=== PATIENT | female | born 1930 | race Caucasian/White ===

== ENCOUNTER 2016-10-19 10:08 | Day surgery (SDC) | payer MEDICARE ==
[2016-10-17 14:19] VITALS: BMI 30.9
[2016-10-19 11:25] VITALS: RESP 18; TEMP 97.6
[2016-10-19] MEDS ORDERED: LIDOCAINE 1% 20 ML VIAL (10MG/ML) FOR IV START INTRADERMA ONE (11:25)
[2016-10-19] MEDS ORDERED: LACTATED RINGERS 1,000 ML IV ONE (11:25)
[2016-10-19] MEDS ORDERED: PROPOFOL 10 MG/ML 20 ML VIAL IV ONE (11:59)
[2016-10-19 12:02] LABS: Glucose,Whole Blood 100 mg/dL (75-99)
--- NOTE | 2016-10-19 12:21 | P.PCN ---
Date of Procedure: 10/19/16 Preoperative Diagnosis: Postoperative Diagnosis: Procedure(s) Performed: Patient is a 85 year-old white female, schedule for flexible sigmoidoscopy as part of evaluation of large rectal polyp that was noted on a recent colonoscopy 3 months ago. 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 She is hence scheduled for a repeat flexible sigmoidoscopy to ensure complete polypectomy. Preoperative diagnosis: Follow-up large rectal polyp with high-grade dysplasia noted on a colonoscopy 3 months ago Procedure Flexible sigmoidoscopy with snare polypectomy and argon plasma coagulation Anesthesia MAC Description of procedure: The patient was brought into the endoscopy unit IV conscious sedation was administered by anesthesia and continuous monitoring. Initial digital rectal examination was normal. The Olympus CF 160 video colonoscope was then inserted into the rectum and gradually advanced to the splenic flexure. Careful examination was performed as the scope was gradually being withdrawn. There were scattered sigmoid diverticulosis seen. The mucosa in the descending colon sigmoid colons and proximal rectum appeared normal. In the distal rectum Proximal to the dentate line there was a 2 cm residual broad-based polyp identified which was removed by snare polypectomy. Part of the polyp at the base could not be removed and this was coagulated using argon plasma. Patient tolerated the procedure well. Impression: 2 cm residual polyp in the distal rectum status post snare polypectomy and argon plasma coagulation as described above Sigmoid diverticulosis Recommendations: Patient was advised to follow with the biopsy results. She'll be seen in office in 2-3 weeks. Based on the biopsy results will plan on a repeat flexible sigmoidoscope in 3 months. Implants: Indications for Procedure: Operative Findings: Description of Procedure:
[2016-10-19 12:48] VITALS: BP 149/72; PULSE 62
== END 2016-10-19 13:37 | disposition home or self-care (01) ==
LOC: ORWHC2ENDO 10:08
PROVIDERS: ATTEND Internal Medicine Gastroenterology
DX: Z09 Encounter for follow-up examination after completed treatment for conditions other than malignant neoplasm (principal); D12.8 Benign neoplasm of rectum; K57.30 Diverticulosis of large intestine without perforation or abscess without bleeding; Z86.010 Personal history of colon polyps; Z79.899 Other long term (current) drug therapy; I10 Essential (primary) hypertension; H40.9 Unspecified glaucoma
CPT/HCPCS: 88305; 45338; J2704; 45346

== ENCOUNTER 2016-11-24 13:03 | Observation (INO) | payer MEDICARE ==
[2016-11-24] MEDS ORDERED: SODIUM CHLORIDE 0.9% 500 ML IV STA (13:23)
--- NOTE | 2016-11-24 13:26 | ED ---
GI Bleed HPI - General Source: patient, RN notes reviewed Mode of arrival: ambulatory Limitations: no limitations <Bryn Rodriguez - Last Filed: 11/24/16 15:17> <Edgar Diaz - Last Filed: 11/24/16 16:45> - General Chief complaint: GI Bleed Stated complaint: Post Op Bleeding Time Seen by Provider: 11/24/16 13:13 - History of Present Illness Initial comments: This is an 85-year-old female with daughter presents emergency Department chief complaint rectal bleeding. Patient states that she started having rectal bleeding on and has continued. She states that anytime she sits on the toilet she has bright red blood. Patient's daughter states that it was at least a quarter cup of blood. Patient has never had any history of rectal bleeding. Patient is not taking any aspirin or blood thinners at this time. She states she has no rectal pain no abdominal discomfort this time denies any chest pain, shortness breath, dizziness. Patient states she is concerned that she had called removed in September by Dr. De La Cruz. Patient did call her GI doctor who told her that it's most likely just irritation or colitis and that if the symptoms worsen that she needs to go to the emergency department. Patient states she did have multiple bowel movements when it started but states they were not hard and she was there is no evidence constipation. (Bryn Rodriguez) - Related Data Home Medications Medication Instructions Recorded Confirmed Brimonidine Tartrate/Timolol 1 drop RIGHT EYE BID 10/17/16 11/24/16 [Combigan 0.2%-0.5% Eye Drops] Ergocalciferol (Vitamin D2) 50,000 unit PO LEWIS 10/17/16 11/24/16 [Vitamin D2] Iron Ps Cmplx/Vit B12/FA 1 cap PO HS 10/17/16 11/24/16 [Myferon-150 Forte Capsule] Losartan [Cozaar] 50 mg PO BID 10/17/16 11/24/16 Propylene Glycol/Peg 400/Pf 1 dropper BOTH EYES DAILY PRN 10/17/16 11/24/16 [Systane 0.3-0.4% Eye Drops] Vits A,C,E/Lutein/Minerals 1 tab PO DAILY 10/17/16 11/24/16 [Ocuvite with Lutein Tablet] amLODIPine [Norvasc] 2.5 mg PO TID 10/17/16 11/24/16 prednisoLONE ACETATE 1% OPHTH 1 drops LEFT EYE QAM 10/17/16 11/24/16 [Pred Forte 1%] Allergies Allergy/AdvReac Type Severity Reaction Status Date / Time Penicillins Allergy Anaphylaxis Verified 11/24/16 14:27 Sulfa (Sulfonamide Allergy Rash/Hives Verified 11/24/16 14:27 Antibiotics) Review of Systems ROS Other: All systems not noted in ROS Statement are negative. <Bryn Rodriguez - Last Filed: 11/24/16 15:17> ROS Other: All systems not noted in ROS Statement are negative. <Edgar Diaz - Last Filed: 11/24/16 16:45> ROS Statement: Those systems with pertinent positive or pertinent negative responses have been documented in the HPI. Past Medical History Past Medical History: Eye Disorder, Hypertension Additional Past Medical History / Comment(s): GLAUCOMA BILAT EYES. RETINAL SWELLING History of Any Multi-Drug Resistant Organisms: None Reported Past Surgical History: Cholecystectomy, Joint Replacement Additional Past Surgical History / Comment(s): COLONOSCOPY. STENT TO RT EYE. TUBE TO LT EYE 2013. INJECTION LT EYE 10/16/16 FOR RETINAL SWELLING-GETS INJECTIONS APPROX. EVERY 5 WEEKS. RT TKA. polyp removal 11/18/16 Past Anesthesia/Blood Transfusion Reactions: Postoperative Nausea & Vomiting ( PONV) Past Psychological History: No Psychological Hx Reported Smoking Status: Former smoker Past Alcohol Use History: None Reported Past Drug Use History: None Reported, Unable to Obtain - Past Family History Mother Family Medical History: No Reported History <Bryn Rodriguez - Last Filed: 11/24/16 15:17> General Exam Limitations: no limitations General appearance: alert, in no apparent distress Respiratory exam: Present: normal lung sounds bilaterally. Absent: respiratory distress, wheezes, rales, rhonchi, stridor Cardiovascular Exam: Present: regular rate, normal rhythm, normal heart sounds. Absent: systolic murmur, diastolic murmur, rubs, gallop, clicks GI/Abdominal exam: Present: soft, normal bowel sounds. Absent: distended, tenderness, guarding, rebound, rigid Rectal exam: Present: normal inspection, normal rectal tone, heme (+) stool, bloody stool, other (Exam performed with Rowena RN). Absent: hemorrhoids, mass, tenderness Neurological exam: Present: alert, oriented X3, CN II-XII intact Skin exam: Present: warm, dry, intact, normal color. Absent: rash <Bryn Rodriguez - Last Filed: 11/24/16 15:17> Medical Decision Making - Lab Data Result diagrams: 11/24/16 13:36 11/24/16 13:36 <Bryn Rodriguez - Last Filed: 11/24/16 15:17> - Lab Data Result diagrams: 11/24/16 13:36 11/24/16 13:36 <Edgar Diaz - Last Filed: 11/24/16 16:45> - Medical Decision Making 85-year-old female presented for rectal bleeding. Patient's hemoglobin is stable at this time. There is also evidence of colitis on CT. Patient be kept in the hospital for repeat H&H in evaluation by her GI doctor dr de la cruz (Bryn Rodriguez) 85-year-old female presenting with hematochezia. Patient's vital signs and hemoglobin are stable. There is history of large amount of rectal bleeding. Case was discussed with gastroenterology, they are aware of the patient. Patient will be admitted for further evaluation and treatment. (Edgar Diaz) - Lab Data Lab Results 11/24/16 11/24/16 11/24/16 Range/Units 13:36 13:36 13:36 WBC 7.2 (3.8-10.6) k/uL RBC 4.69 (3.80-5.40) m/uL Hgb 14.3 (11.4-16.0) gm/dL Hct 43.0 (34.0-46.0) % MCV 91.7 (80.0-100.0) fL MCH 30.5 (25.0-35.0) pg MCHC 33.3 (31.0-37.0) g/dL RDW 14.0 (11.5-15.5) % Plt Count 223 (150-450) k/uL Neutrophils % 55 % Lymphocytes % 34 % Monocytes % 7 % Eosinophils % 2 % Basophils % 1 % Neutrophils # 3.9 (1.3-7.7) k/uL Lymphocytes # 2.5 (1.0-4.8) k/uL Monocytes # 0.5 (0-1.0) k/uL Eosinophils # 0.1 (0-0.7) k/uL Basophils # 0.0 (0-0.2) k/uL PT (9.0-12.0) sec INR (<1.2) APTT (22.0-30.0) sec Sodium 139 (137-145) mmol/L Potassium 4.1 (3.5-5.1) mmol/L Chloride 105 (98-107) mmol/L Carbon Dioxide 25 (22-30) mmol/L Anion Gap 9 mmol/L BUN 15 (7-17) mg/dL Creatinine 0.69 (0.52-1.04) mg/dL Est GFR (MDRD) Af Amer >60 (>60 ml/min/1.73 sqM) Est GFR (MDRD) Non-Af >60 (>60 ml/min/1.73 sqM) Glucose 96 (74-99) mg/dL Calcium 9.8 (8.4-10.2) mg/dL Magnesium 2.0 (1.6-2.3) mg/dL Total Bilirubin 0.6 (0.2-1.3) mg/dL AST 21 (14-36) U/L ALT 28 (9-52) U/L Alkaline Phosphatase 70 (38-126) U/L Total Protein 7.4 (6.3-8.2) g/dL Albumin 4.3 (3.5-5.0) g/dL Stool Occult Blood Positive H (Negative) Blood Type Blood Type Confirm Blood Type Recheck Antibody Screen Spec Expiration Date 11/24/16 11/24/16 11/24/16 Range/Units 13:36 13:36 14:40 WBC (3.8-10.6) k/uL RBC (3.80-5.40) m/uL Hgb (11.4-16.0) gm/dL Hct (34.0-46.0) % MCV (80.0-100.0) fL MCH (25.0-35.0) pg MCHC (31.0-37.0) g/dL RDW (11.5-15.5) % Plt Count (150-450) k/uL Neutrophils % % Lymphocytes % % Monocytes % % Eosinophils % % Basophils % % Neutrophils # (1.3-7.7) k/uL Lymphocytes # (1.0-4.8) k/uL Monocytes # (0-1.0) k/uL Eosinophils # (0-0.7) k/uL Basophils # (0-0.2) k/uL PT 9.8 (9.0-12.0) sec INR 1.0 (<1.2) APTT 23.0 (22.0-30.0) sec Sodium (137-145) mmol/L Potassium (3.5-5.1) mmol/L Chloride (98-107) mmol/L Carbon Dioxide (22-30) mmol/L Anion Gap mmol/L BUN (7-17) mg/dL Creatinine (0.52-1.04) mg/dL Est GFR (MDRD) Af Amer (>60 ml/min/1.73 sqM) Est GFR (MDRD) Non-Af (>60 ml/min/1.73 sqM) Glucose (74-99) mg/dL Calcium (8.4-10.2) mg/dL Magnesium (1.6-2.3) mg/dL Total Bilirubin (0.2-1.3) mg/dL AST (14-36) U/L ALT (9-52) U/L Alkaline Phosphatase (38-126) U/L Total Protein (6.3-8.2) g/dL Albumin (3.5-5.0) g/dL Stool Occult Blood (Negative) Blood Type A Positive Blood Type Confirm A Positive Blood Type Recheck CABO Indicated Antibody Screen NEGATIVE Spec Expiration Date 11/27/2016 - 2335 Disposition <Bryn Rodriguez M - Last Filed: 11/24/16 15:17> <Edgar Diaz - Last Filed: 11/24/16 16:45> Clinical Impression: GI bleed, Colitis Disposition: ADMITTED IP TO THIS [facility] Condition: Good
[2016-11-24] MEDS ORDERED: RX INFO: IV CONTRAST WAS GIVEN 1 EACH MISC MISCELLANE PRN (13:32)
[2016-11-24 13:47] LABS: Basophils % (A) 1 %; CH 31.9; CHCM 34.9; Eosinophils # (A) 0.1 k/uL (0-0.7); Eosinophils % (A) 2 %; HDW 2.36; HGB 14.3 gm/dL (11.4-16.0); Luc # (Auto) 0.17; Luc % (Auto) 2; Lymphocytes # (A) 2.5 k/uL (1.0-4.8); Lymphocytes % (A) 34 %; MCH 30.5 pg (25.0-35.0); MCHC 33.3 g/dL (31.0-37.0); MCV 91.7 fL (80.0-100.0); Mean Platelet Volume 7.9; Monocytes # (A) 0.5 k/uL (0-1.0); Monocytes % (A) 7 %; Neutrophils # (A) 3.9 k/uL (1.3-7.7); Neutrophils % (A) 55 %; RBC 4.69 m/uL (3.80-5.40); WBC 7.2 k/uL (3.8-10.6)
[2016-11-24 13:56] LABS: ALT 28 U/L (9-52); AST 21 U/L (14-36); Alkaline Phosphatase 70 U/L (38-126); Anion Gap 9 mmol/L; Blood Urea Nitrogen 15 mg/dL (7-17); Calcium 9.8 mg/dL (8.4-10.2); Carbon Dioxide 25 mmol/L (22-30); Chloride 105 mmol/L (98-107); Glucose 96 mg/dL (74-99); Non-African American GFR(MDRD) >60 (>60 ml/min/1.73 sqM); Potassium 4.1 mmol/L (3.5-5.1); Prothrombin Time 9.8 sec (9.0-12.0); Sodium 139 mmol/L (137-145); Total Bilirubin 0.6 mg/dL (0.2-1.3); Total Protein 7.4 g/dL (6.3-8.2)
--- NOTE | 2016-11-24 15:03 | CT ---
EXAMINATION TYPE: CT abdomen pelvis w con DATE OF EXAM: 11/24/2016 HISTORY: Rectal bleeding. History of recent colonoscopy with polyp removed 6 [address] DLP: 1669.8mGycm Automated Exposure Control for Dose Reduction was Utilized. CONTRAST: CT scan of the abdomen and pelvis is performed without oral but with IV Contrast, patient injected wi th 100 mL of Omnipaque 300. COMPARISON: None. FINDINGS: LUNG BASES: There is suspected coronary artery stent or prominent calcification in the RCA distributi on. There is lingular scarring or atelectatic change near diaphragm. There is medial left basilar royce ear atelectasis or scarring and posterior right basilar linear scarring or atelectasis. Heart size is mildly enlarged. LIVER/GB: Single calcification right hepatic lobe on axial image 29 is noted. Gallbladder is not visu alized and presumed surgically absent. Mild intrahepatic biliary dilatation is seen measuring up to 1 2 mm without obstructing stone or mass identified. No significant intrahepatic biliary dilatation is noted. PANCREAS: Pancreatic duct is visualized but not suspiciously dilated. SPLEEN: No significant abnormality is seen. ADRENALS: No significant abnormality is seen. KIDNEYS: Some cortical thinning in both kidneys is present. BOWEL: There is no suspicious small or large bowel dilatation. Normal-appearing appendix is seen from cecum. There are diverticula throughout the colon most pronounced involving the sigmoid colon. Evalu ation bowel is suboptimal secondary to lack of enteric contrast. There is mild wall thickening involv ing the distal transverse colon extending through splenic flexure involving majority of the descendin g colon. A colitis at this level cannot be excluded versus product of poor distention. UTERUS/ADNEXA: No gross abnormality seen. LYMPH NODES: No greater than 1cm abdominal or pelvic lymph nodes are appreciated. OSSEOUS STRUCTURES: Osseous structures are demineralized. There is vacuum disc phenomenon with modera te disc space narrowing L4-L5 level. OTHER: There is mild to moderate calcified plaque of the aorta extending into pelvic branch vessels. IMPRESSION: Colonic diverticulosis without CT evidence for acute diverticulitis. Cannot exclude mild colitis, differential would include infectious and inflammatory etiologies.
[2016-11-24] MEDS ORDERED: ACETAMINOPHEN TAB 325 MG TAB PO PRN (15:24)
[2016-11-24] MEDS ORDERED: NALOXONE 0.4 MG/ML 1 ML VIAL IV PRN (15:24)
[2016-11-24] MEDS ORDERED: ARTIFICIAL TEARS-HYPROMELLOSE DROPS 15 ML BTL BOTH EYES PRN (20:06)
[2016-11-24] MEDS: BRIMONIDINE TARTRATE 0.2% DROPS 5 ML BTL RIGHT EYE SCH (21:27)
[2016-11-24] MEDS: TIMOLOL 0.5% OPHTH DROPS 5 ML BTL RIGHT EYE SCH (21:28)
[2016-11-24] MEDS: amLODIPine 2.5 MG TAB PO SCH (21:30)
[2016-11-24] MEDS: IRON PS CMPLX/VIT B12/FA 1 EACH CAP PO SCH (21:30)
[2016-11-24] MEDS: LOSARTAN 50 MG TAB PO SCH (21:39)
[2016-11-25 07:57] LABS: Basophils % (A) 1 %; CH 31.7; CHCM 34.6; Eosinophils # (A) 0.1 k/uL (0-0.7); Eosinophils % (A) 1 %; HCT 36.5 % (34.0-46.0); HDW 2.33; HGB 12.2 gm/dL (11.4-16.0); Luc # (Auto) 0.15; Luc % (Auto) 3; Lymphocytes # (A) 1.8 k/uL (1.0-4.8); Lymphocytes % (A) 36 %; MCH 30.8 pg (25.0-35.0); MCHC 33.4 g/dL (31.0-37.0); MCV 92.1 fL (80.0-100.0); Mean Platelet Volume 7.9; Monocytes # (A) 0.4 k/uL (0-1.0); Monocytes % (A) 7 %; Neutrophils # (A) 2.6 k/uL (1.3-7.7); Neutrophils % (A) 51 %; RBC 3.97 m/uL (3.80-5.40); RDW 13.8 % (11.5-15.5); WBC (Perox) 4.92
[2016-11-25 08:37] LABS: ALT 23 U/L (9-52); AST 18 U/L (14-36); Alkaline Phosphatase 58 U/L (38-126); Anion Gap 7 mmol/L; Blood Urea Nitrogen 13 mg/dL (7-17); Carbon Dioxide 23 mmol/L (22-30); Chloride 109 mmol/L (98-107); Glucose 79 mg/dL (74-99); Non-African American GFR(MDRD) >60 (>60 ml/min/1.73 sqM); Potassium 3.5 mmol/L (3.5-5.1); Sodium 139 mmol/L (137-145); Total Bilirubin 0.8 mg/dL (0.2-1.3); Total Protein 5.9 g/dL (6.3-8.2)
[2016-11-25] MEDS: TIMOLOL 0.5% OPHTH DROPS 5 ML BTL RIGHT EYE SCH ×2 (08:38→20:20)
[2016-11-25] MEDS: BRIMONIDINE TARTRATE 0.2% DROPS 5 ML BTL RIGHT EYE SCH ×2 (08:39→20:20)
[2016-11-25] MEDS: prednisoLONE ACETATE 1% OPHTH DROPS 1 ML BTL LEFT EYE SCH (08:39)
[2016-11-25] MEDS: LOSARTAN 50 MG TAB PO SCH (08:40)
[2016-11-25] MEDS: amLODIPine 2.5 MG TAB PO SCH ×2 (08:40→18:08)
[2016-11-25] MEDS: VIT A,C & E-LUTEIN-MINERALS 1 EACH TAB PO SCH (08:40)
[2016-11-25] MEDS: SODIUM CHLORIDE 0.9% 1,000 ML IV SCH (08:41)
[2016-11-25] MEDS ORDERED: ERGOCALCIFEROL 50,000 UNIT CAP PO SCH (12:00)
[2016-11-25 15:59] VITALS: RESP 16
[2016-11-25] MEDS ORDERED: DIAZEPAM 5 MG TAB PO PRN (16:16)
[2016-11-25] MEDS ORDERED: MAGNESIUM CITRATE 296 ML BOTTLE PO ONE (17:00)
[2016-11-25] MEDS ORDERED: Magnesium Replacement Protocol 1 EACH MISC MISCELLANE PRN (17:30)
[2016-11-25] MEDS ORDERED: Potassium Replacement Protocol 1 EACH MISC MISCELLANE PRN (17:30)
[2016-11-25 17:49] LABS: Basophils % (A) 1 %; CH 31.6; CHCM 34.5; Eosinophils # (A) 0.1 k/uL (0-0.7); Eosinophils % (A) 2 %; HCT 40.3 % (34.0-46.0); HDW 2.38; HGB 13.3 gm/dL (11.4-16.0); Luc # (Auto) 0.13; Luc % (Auto) 3; Lymphocytes # (A) 1.6 k/uL (1.0-4.8); Lymphocytes % (A) 34 %; MCH 30.5 pg (25.0-35.0); MCHC 33.1 g/dL (31.0-37.0); MCV 92.1 fL (80.0-100.0); Mean Platelet Volume 8.2; Monocytes # (A) 0.4 k/uL (0-1.0); Monocytes % (A) 8 %; Neutrophils # (A) 2.5 k/uL (1.3-7.7); Neutrophils % (A) 54 %; RBC 4.37 m/uL (3.80-5.40); RDW 13.6 % (11.5-15.5); WBC 4.7 k/uL (3.8-10.6); WBC (Perox) 4.84
[2016-11-25] MEDS ORDERED: ALPRAZolam 0.25 MG TAB PO PRN (18:06)
--- NOTE | 2016-11-25 18:10 | P.HPIM ---
History of Present Illness H&P Date: 11/25/16 Chief Complaint: Rectal bleed This is a 85-year-old female with past medical history noted below who presented to the hospital with rectal bleed. Patient said that she [] blood with her stool on and this is being getting progressively worse. Yesterday she noted approximately half cupful of blood in the toilet along with her stool. She said that she had a colonoscopy approximately 4 months ago and at that time she was found to have a polyp that was removed. She is agile to follow up with GI in the office last week but her appointment was rescheduled. She said that she does not take blood thinners at home. She never had problems with recurrent GI bleed. She was evaluated in the emergency room and was found to be hemodynamically stable. Hemoglobin on presentation was 14. Today, patient continued to complain of having liquid stool with bright red blood mixed with it. C. diff screen was negative. Her daughter at bedside is a nurse and she confirmed large amount of bright red blood with each bowel movement. Review of Systems Review of system: 14 points review of systems were obtained and were negative except to what were mentioned in the HPI. Past Medical History Past Medical History: Eye Disorder, Hypertension Additional Past Medical History / Comment(s): GLAUCOMA BILAT EYES. RETINAL SWELLING History of Any Multi-Drug Resistant Organisms: None Reported Past Surgical History: Cholecystectomy, Joint Replacement Additional Past Surgical History / Comment(s): COLONOSCOPY. STENT TO RT EYE. TUBE TO LT EYE 2013. INJECTION LT EYE 10/16/16 FOR RETINAL SWELLING-GETS INJECTIONS APPROX. EVERY 5 WEEKS. RT TKA. polyp removal 10/19/16 Past Anesthesia/Blood Transfusion Reactions: Postoperative Nausea & Vomiting ( PONV) Past Psychological History: No Psychological Hx Reported Smoking Status: Former smoker Past Alcohol Use History: None Reported Additional Past Alcohol Use History / Comment(s): QUIT OVER 50 YRS AGO Past Drug Use History: None Reported, Unable to Obtain - Past Family History Mother Family Medical History: No Reported History Medications and Allergies Home Medications Medication Instructions Recorded Confirmed Type Brimonidine Tartrate/Timolol 1 drop RIGHT EYE BID 10/17/16 11/24/16 History [Combigan 0.2%-0.5% Eye Drops] Ergocalciferol (Vitamin D2) 50,000 unit PO LEWIS 10/17/16 11/24/16 History [Vitamin D2] Iron Ps Cmplx/Vit B12/FA 1 cap PO HS 10/17/16 11/24/16 History [Myferon-150 Forte Capsule] Losartan [Cozaar] 50 mg PO BID 10/17/16 11/24/16 History Propylene Glycol/Peg 400/Pf 1 dropper BOTH EYES DAILY PRN 10/17/16 11/24/16 History [Systane 0.3-0.4% Eye Drops] Vits A,C,E/Lutein/Minerals 1 tab PO DAILY 10/17/16 11/24/16 History [Ocuvite with Lutein Tablet] amLODIPine [Norvasc] 2.5 mg PO TID 10/17/16 11/24/16 History prednisoLONE ACETATE 1% OPHTH 1 drops LEFT EYE QAM 10/17/16 11/24/16 History [Pred Forte 1%] Allergies Allergy/AdvReac Type Severity Reaction Status Date / Time Penicillins Allergy Anaphylaxis Verified 11/24/16 14:27 Sulfa (Sulfonamide Allergy Rash/Hives Verified 11/24/16 14:27 Antibiotics) Physical Exam Vitals: Vital Signs Temp Pulse Resp BP Pulse Ox 11/25/16 15:00 97.4 F L 68 16 134/64 98 11/25/16 07:00 97.4 F L 69 17 111/53 95 11/24/16 23:57 77 16 11/24/16 23:00 97.5 F L 77 16 137/75 95 Intake and Output 11/25/16 11/25/16 11/25/16 06:59 14:59 22:59 Intake Total 80 600 Balance 80 600 Intake: Intake, IV Titration 80 Amount Sodium Chloride 0.9% 1, 80 000 ml @ 20 mls/hr IV . Q24H SHAN Rx#:[id number] Oral 600 Other: Voiding Method Toilet Toilet Toilet # Voids 3 General: The patient is awake and alert, in no distress Eye: there is normal conjunctiva bilaterally. Neck: The neck is supple, there is no JVD. Cardiovascular: Normal S1-S2, no S3-S4, no murmurs. Respiratory: Lungs clear to auscultation bilaterally Gastrointestinal: Abdomen is soft, nontender Musculoskeletal: There is no pedal edema. Neurological:. Speech is normal. Skin: Skin is warm and dry Results CBC & Chem 7: 11/25/16 17:17 11/25/16 07:24 Labs: Abnormal Lab Results - Last 24 Hours (Table) 11/25/16 Range/Units 07:24 Chloride 109 H (98-107) mmol/L Total Protein 5.9 L (6.3-8.2) g/dL Albumin 3.3 L (3.5-5.0) g/dL Thrombosis Risk Factor Assmnt - Choose All That Apply Each Factor Represents 1 point: Obesity (BMI >25) Each Risk Factor Represents 3 Points: Age 75 years or older Thrombosis Risk Factor Assessment Total Risk Factor Score: 4 Thrombosis Risk Factor Assessment Level: Moderate Risk Assessment and Plan Plan: 1. Hematochezia may be attributed to underlying diverticular disease. Computed tomography scan of the abdomen showed colonic diverticulosis with no evidence of acute diverticulitis. Patient was seen and evaluated by gastroenterology and plan for colonoscopy in the morning. 2. Essential hypertension: Blood pressure on the lower side. I would decrease some of her home medication doses. Today, I reviewed her medication list and lab work results. Repeat hemoglobin this evening is around 13. There is no significant drop in her hemoglobin. We' ll transfuse as needed for hemoglobin below 8. Patient and her daughter at bedside updated about her current clinical condition. We will continue supportive care. Repeat lab work in the morning.
[2016-11-25] MEDS: IRON PS CMPLX/VIT B12/FA 1 EACH CAP PO SCH (20:19)
[2016-11-26] MEDS: SODIUM CHLORIDE 0.9% 1,000 ML IV SCH (00:01)
[2016-11-26] MEDS: NA PHOS,M-B/NA PHOS,DI-BA 133 ML ENEMA RECTAL SCH ×2 (05:50→06:23)
[2016-11-26] MEDS ORDERED: LIDOCAINE 1% INJ 10MG/ML (20 ML MDV) ONE (07:05)
[2016-11-26] MEDS ORDERED: PROPOFOL 10 MG/ML 20 ML VIAL IV ONE (07:05)
[2016-11-26] MEDS ORDERED: ONDANSETRON 4 MG/2 ML VIAL ONE (07:05)
[2016-11-26] MEDS ORDERED: LACTATED RINGERS 1,000 ML IV ONE (07:07)
--- NOTE | 2016-11-26 07:24 | P.PCN ---
Date of Procedure: 11/26/16 Preoperative Diagnosis: Postoperative Diagnosis: Procedure(s) Performed: BRIEF HISTORY: Patient is a 85-year-old pleasant white female, admitted hospital with acute lower GI bleed. She had multiple episodes of bright blood per rectum for the last 5 days duration. She had a flexible sigmoid colonoscopy done on 10/19/2016 as a part of follow-up of large rectal polyp and it showed a 2 cm residual polyp that was removed by snare polypectomy and argon plasma coagulation was performed. For the last 4 days started having rectal bleeding A to 4 times a day and she is hence scheduled for a flexible sigmoidoscopy to evaluate this. PROCEDURE PERFORMED: Flexible sigmoidoscopy PREOPERATIVE DIAGNOSIS: acute lower GI bleeding IV sedation per Anesthesia. PROCEDURE: After informed consent was obtained, the patient, was brought into the endoscopy unit. IV sedation was administered by Anesthesia under continuous monitoring. Digital rectal examination was normal. Initially the Olympus CF- 160 flexible video colonoscope was then inserted in the rectum, gradually advanced into the splenic flexure and carefully examination was performed as the scope was gradually being withdrawn. The mucosa of the descending colon, sigmoid colon, and rectum appeared normal. Scattered sigmoid diverticulosis seen with no active bleeding. In the rectum distal rectum at the site of previous polypectomy there was a superficial ulceration identified with a small red spot but no active bleeding. Since this appeared to be the source of recent bleed and proceed with cautery with a gold probe and the ulcer was completely cauterized. Retroflexion was performed in the rectum and no lesions were seen. The patient tolerated the procedure well. IMPRESSION: 1. Distal rectal superficial ulceration at the site of previous polypectomy with no active bleeding, but since this appeared to be the source of bleeding cautery was performed using a gold probe. 2. Scattered sigmoid diverticulosis. RECOMMENDATIONS: Findings of this examination were discussed with the patient as well as a family. She'll be started on a regular diet and she can be discharged home today. Implants: Indications for Procedure: Operative Findings: Description of Procedure:
--- NOTE | 2016-11-26 07:32 | CONS ---
DATE OF CONSULTATION: 11/25/2016 REASON FOR CONSULTATION: Rectal bleeding of four days duration. HISTORY OF PRESENT ILLNESS: The patient is a 89 -year-old pleasant white female came to the emergency room with ongoing rectal bleeding for the last four days. On , she had two episodes of bright red blood per rectum and she called me Saturday morning and she was advised to go to the emergency room if she continues to have persistent symptoms. However, on Saturday, she did not have any bleeding but yesterday she had about four episodes of bright red blood per rectum with some clots. She became very concerned yesterday evening, went to the emergency room and subsequently was admitted to the hospital for further evaluation and treatment. The patient recently underwent flexible sigmoidoscopy on October 19 as part of follow-up of a large rectal polyp that was noted on a prior colonoscopy three months earlier. The polyp was located in the distal rectum 4 cm broad based that was removed with snare polypectomy and Argon plasma coagulation was performed. She also has sigmoid diverticulosis. This morning she is doing better. No further bleeding. No abdominal pain. No fevers, chills or night sweats. Never had similar symptoms in the past. Past medical history: glaucoma, hypertension. Medications at home: 1. Timolol eye drops. 2. Vitamin D3. 3. Losartan. 4. Prednisolone eye drops. ALLERGIES: SULFA AND PENICILLIN. SOCIAL HISTORY: No smoking or alcohol use. PAST SURGICAL HISTORY: Colonoscopy in June 2016 that showed a large 4 cm rectal polyp. Repeat sigmoidoscopy in September 2016 showed a 2 cm residual polyp that was ( ). FAMILY HISTORY: Mother and father of old age. REVIEW OF SYSTEMS: CARDIOPULMONARY: No chest pain or shortness of breath. : No hematuria or dysuria. MUSCULOSKELETAL: Unremarkable. SKIN: Unremarkable Endocrine: Unremarkable. Psychiatric: Unremarkable. Neurological: Unremarkable. ENT/Vision: Unremarkable. Constitutional: No recent weight loss. No fevers, chills or night sweats. On physical examination, she appears comfortable, in no apparent distress. Vital signs are stable. Blood pressure is 129/95. Pulse rate 88. Temperature 97.7. HEENT: Unremarkable. Conjunctivae pink. Sclerae anicteric. Oral cavity no lesions. Neck no JVD or lymph node enlargement. Chest is clear to auscultation. Heart is regular rate and rhythm. Abdomen is soft. Bowel sounds positive. No organomegaly. Extremities no pedal edema. Skin no rashes. Neurological: Alert and oriented times three. No focal deficits. Labs done at the time of admission to the hospital last night: WBC 7.2, hemoglobin 15.3, platelets normal. Basic metabolic panel is within normal limits. PT/INR is normal. This morning repeat hemoglobin is 12.2. Stool for C. dif is negative. Stool occult blood was positive. CT of the abdomen done yesterday in the emergency room showed evidence of sigmoid diverticulosis with no diverticulitis. Mild wall thickening involving the left colon. IMPRESSION: This is a lady who presents with ongoing rectal bleeding for the last four days duration with some diarrhea. CT scan of the abdomen showed some mild thickening of the left side of the colon. She had flexible sigmoidoscopy done six weeks ago and was noted to have a 2 cm residual rectal polyp that was removed by snare polypectomy and Argon plasma coagulation was performed. At this time, it is not sure if we are dealing with bleeding from the polypectomy site or though it appears unlikely since the polyp was removed six weeks ago or possibility of an acute infectious colitis versus ischemic colitis, needs to be considered. Doubt diverticular bleed. In any event, hemoglobin remains stable and it is 12.6. RECOMMENDATIONS: 1. Start on a clear liquid diet. 2. Proceed with flexible ( ) tomorrow. 3. The plan was discussed with the patient and she is agreeable to it. Thank you for this consultation. JACQUES
[2016-11-26 07:54] VITALS: BP 163/70; PULSE 64; TEMP 97.5
[2016-11-26 08:04] LABS: Basophils % (A) 1 %; CHCM 34.3; Eosinophils # (A) 0.1 k/uL (0-0.7); Eosinophils % (A) 2 %; HCT 38.4 % (34.0-46.0); HDW 2.42; HGB 13.3 gm/dL (11.4-16.0); Luc % (Auto) 2; Lymphocytes # (A) 1.4 k/uL (1.0-4.8); Lymphocytes % (A) 27 %; MCH 31.4 pg (25.0-35.0); MCHC 34.5 g/dL (31.0-37.0); MCV 90.9 fL (80.0-100.0); Mean Platelet Volume 7.4; Monocytes # (A) 0.4 k/uL (0-1.0); Monocytes % (A) 7 %; Neutrophils # (A) 3.1 k/uL (1.3-7.7); Neutrophils % (A) 62 %; RBC 4.23 m/uL (3.80-5.40); RDW 12.8 % (11.5-15.5); WBC 5.1 k/uL (3.8-10.6); WBC (Perox) 4.87
[2016-11-26 08:25] LABS: Anion Gap 10 mmol/L; Blood Urea Nitrogen 10 mg/dL (7-17); Calcium 9.3 mg/dL (8.4-10.2); Carbon Dioxide 27 mmol/L (22-30); Chloride 107 mmol/L (98-107); Glucose 86 mg/dL (74-99); Magnesium 2.2 mg/dL (1.6-2.3); Non-African American GFR(MDRD) >60 (>60 ml/min/1.73 sqM); Potassium 3.4 mmol/L (3.5-5.1); Sodium 144 mmol/L (137-145)
[2016-11-26] MEDS: prednisoLONE ACETATE 1% OPHTH DROPS 1 ML BTL LEFT EYE SCH (08:26)
[2016-11-26] MEDS: TIMOLOL 0.5% OPHTH DROPS 5 ML BTL RIGHT EYE SCH (08:26)
[2016-11-26] MEDS: BRIMONIDINE TARTRATE 0.2% DROPS 5 ML BTL RIGHT EYE SCH (08:26)
[2016-11-26] MEDS: VIT A,C & E-LUTEIN-MINERALS 1 EACH TAB PO SCH (08:26)
[2016-11-26] MEDS ORDERED: POTASSIUM CHLORIDE ER 20 MEQ TAB.ER PO STA (08:41)
[2016-11-26] MEDS ORDERED: LOSARTAN 50 MG TAB PO SCH (09:00)
[2016-11-26] MEDS ORDERED: amLODIPine 2.5 MG TAB PO SCH (09:00)
--- NOTE | 2016-11-26 10:50 | P.DS ---
Providers Date of admission: 11/24/16 15:25 Expected date of discharge: 11/26/16 Attending physician: Deion Mccord Consults: 11/24/16 15:24 Consult Physician Stat Consulting Provider: Merle De La Cruz Consult Reason/Comments: rectal bleeding Do you want consulting provider notified?: Already Contacted Primary care physician: Sarahy Seo Hospital Course: Discharge diagnosis 1. Rectal bleeding: Status post flexible sigmoidoscopy with Dr. Alarcon revealing a distal rectal ulceration at the site of previous polypectomy. No active bleeding. But this didn't appear to be the source of bleeding cautery was performed at that area. Also evidence of scattered sigmoid diverticulosis. Hemoglobin has remained stable. Dr. Alarcon has cleared patient for discharge 2. Essential hypertension with blood pressures being on the lower side. Medications have been adjusted. Losartan has been decreased to 50 mg daily. We 'll adjust Norvasc dosage to 5 mg daily. Patient's blood pressure are still now stable. Continue to monitor. 3. Hypokalemia potassium 3.4 at discharge. She received supplement. Hospital course This is a 85-year-old female with past medical history noted below who presented to the hospital with rectal bleed. Patient said that she [] blood with her stool on and this is being getting progressively worse. Yesterday she noted approximately half cupful of blood in the toilet along with her stool. She said that she had a colonoscopy approximately 4 months ago and at that time she was found to have a polyp that was removed. She is agile to follow up with GI in the office last week but her appointment was rescheduled. She said that she does not take blood thinners at home. She never had problems with recurrent GI bleed. She was evaluated in the emergency room and was found to be hemodynamically stable. Hemoglobin on presentation was 14. Today, patient continued to complain of having liquid stool with bright red blood mixed with it. C. diff screen was negative. Her daughter at bedside is a nurse and she confirmed large amount of bright red blood with each bowel movement. Patient underwent a flexible sigmoidoscopy with Dr. Alarcon. I did reveal a distal rectal ulceration at the site of previous polypectomy. No evidence of active bleeding. But she did cauterize that area. There is also evidence of diverticulosis. Patient's hemoglobin has remained stable during this admission. She did have one more bloody bowel movements this morning after the procedure. He shouldn't and patient started been educated that she may still have some bleeding but it should continue to show improvement. Hemoglobin has remained stable. Hemoglobin at discharge is 13.3. GI service has cleared her for discharge. We'll have her follow-up with her PCP in 3 days for blood pressure check and CBC and BMP check. Please refer to chart for any further details. Patient Condition at Discharge: Stable Plan - Discharge Summary New Discharge Prescriptions: New amLODIPine BESYLATE [Norvasc] 5 mg PO DAILY #30 tablet Losartan [Cozaar] 50 mg PO DAILY #0 tab Continue prednisoLONE ACETATE 1% OPHTH [Pred Forte 1%] 1 drops LEFT EYE QAM Vits A,C,E/Lutein/Minerals [Ocuvite with Lutein Tablet] 1 tab PO DAILY Propylene Glycol/Peg 400/Pf [Systane 0.3-0.4% Eye Drops] 1 dropper BOTH EYES DAILY PRN PRN Reason: Dry Eye(S) Iron Ps Cmplx/Vit B12/FA [Myferon-150 Forte Capsule] 1 cap PO HS Ergocalciferol (Vitamin D2) [Vitamin D2] 50,000 unit PO LEWIS Brimonidine Tartrate/Timolol [Combigan 0.2%-0.5% Eye Drops] 1 drop RIGHT EYE BID Discontinued amLODIPine [Norvasc] 2.5 mg PO TID Losartan [Cozaar] 50 mg PO BID Discharge Medication List Brimonidine Tartrate/Timolol [Combigan 0.2%-0.5% Eye Drops] 1 drop RIGHT EYE BID 10/17/16 [History] Ergocalciferol (Vitamin D2) [Vitamin D2] 50,000 unit PO LEWIS 10/17/16 [History] Iron Ps Cmplx/Vit B12/FA [Myferon-150 Forte Capsule] 1 cap PO HS 10/17/16 [ History] Propylene Glycol/Peg 400/Pf [Systane 0.3-0.4% Eye Drops] 1 dropper BOTH EYES DAILY PRN 10/17/16 [History] Vits A,C,E/Lutein/Minerals [Ocuvite with Lutein Tablet] 1 tab PO DAILY 10/17/16 [History] prednisoLONE ACETATE 1% OPHTH [Pred Forte 1%] 1 drops LEFT EYE QAM 10/17/16 [ History] Losartan [Cozaar] 50 mg PO DAILY #0 tab 11/26/16 [Rx] amLODIPine BESYLATE [Norvasc] 5 mg PO DAILY #30 tablet 11/26/16 [Rx] Follow up Appointment(s)/Referral(s): Sarahy Seo DO [Primary Care Provider] - 3 Days Activity/Diet/Wound Care/Special Instructions: Diet: cardiac Activity: as tolerated check CBC in 3 days Discharge Disposition: HOME SELF-CARE
== END 2016-11-26 11:38 | disposition home or self-care (01) ==
LOC: EC 13:03 → 5MS5E 15:25 → 5ONC 17:04
PROVIDERS: ADMIT Internal Medicine; ATTEND Internal Medicine
DX: K92.2 Gastrointestinal hemorrhage, unspecified (principal); E87.6 Hypokalemia; I10 Essential (primary) hypertension; K62.6 Ulcer of anus and rectum; K57.30 Diverticulosis of large intestine without perforation or abscess without bleeding; Z79.899 Other long term (current) drug therapy; Z88.0 Allergy status to penicillin; Z88.2 Allergy status to sulfonamides; H40.9 Unspecified glaucoma; Z87.891 Personal history of nicotine dependence; Z79.52 Long term (current) use of systemic steroids
CPT/HCPCS: 96360; 99285; 36415; 86900; 86901; 80053 ×2; 80048; 83735 ×2; 85025 ×3; 85610; 85730; 86850; 82272; 87324; 74177; 45334; G0378 ×3; J2405; J2001; Q9967; J2704; 96361

== ENCOUNTER 2018-07-17 21:10 | Inpatient (IN) | payer MEDICARE ==
[2018-07-17] MEDS ORDERED: SODIUM CHLORIDE 0.9% 500 ML 500 ML IV ONE (21:58)
[2018-07-17] MEDS ORDERED: ONDANSETRON 4 MG/2 ML VIAL IVP STA (22:27)
[2018-07-17 22:32] LABS: Basophils % (A) 0 %; Eosinophils # (A) 0.1 k/uL (0-0.7); Eosinophils % (A) 1 %; HCT 42.6 % (34.0-46.0); HGB 14.3 gm/dL (11.4-16.0); Lymphocytes # (A) 1.2 k/uL (1.0-4.8); Lymphocytes % (A) 13 %; MCH 29.9 pg (25.0-35.0); MCHC 33.5 g/dL (31.0-37.0); MCV 89.2 fL (80.0-100.0); Monocytes # (A) 0.5 k/uL (0-1.0); Monocytes % (A) 5 %; Neutrophils # (A) 7.1 k/uL (1.3-7.7); Neutrophils % (A) 80 %; Platelet Count 217 k/uL (150-450); RBC 4.78 m/uL (3.80-5.40); RDW 12.9 % (11.5-15.5); WBC 8.9 k/uL (3.8-10.6)
[2018-07-17 22:36] LABS: ALT 41 U/L (9-52); AST 35 U/L (14-36); Alkaline Phosphatase 63 U/L (38-126); Anion Gap 9 mmol/L; Blood Urea Nitrogen 16 mg/dL (7-17); Calcium 9.5 mg/dL (8.4-10.2); Carbon Dioxide 23 mmol/L (22-30); Chloride 105 mmol/L (98-107); Glucose 128 mg/dL (74-99); Lipase 703 U/L (23-300); Potassium 3.7 mmol/L (3.5-5.1); Sodium 137 mmol/L (137-145); Total Bilirubin 0.6 mg/dL (0.2-1.3)
[2018-07-18] MEDS ORDERED: ACETAMINOPHEN TAB 325 MG TAB PO PRN (00:45)
[2018-07-18] MEDS ORDERED: MORPHINE SULFATE 4 MG/ML SYRINGE IV PRN (00:45)
[2018-07-18] MEDS ORDERED: IBUPROFEN 400 MG TAB PO PRN (00:45)
[2018-07-18] MEDS ORDERED: NALOXONE 0.4 MG/ML 1 ML VIAL IV PRN (00:45)
[2018-07-18 00:58] LABS: Appearance,Urine Clear (Clear); Bilirubin,Urine Negative (Negative); Blood,Urine Negative (Negative); Color,Urine Light Yellow; Glucose,Urine (UA) Negative (Negative); Ketones,Urine Negative (Negative); Leukocyte Esterase,Urine Large (Negative); Mucus,Urine Rare /hpf; Nitrite,Urine Negative (Negative); Protein,Urine Negative (Negative); RBC,Urine 4 /hpf (0-5); Specific Gravity,Urine 1.027 (1.001-1.035); Squamous Epithelial Cell,Urine 1 /hpf (0-4); Urobilinogen,Urine <2.0 mg/dL (<2.0)
--- NOTE | 2018-07-18 01:16 | ED ---
Nausea/Vomiting/Diarrhea HPI - General Source: patient Mode of arrival: ambulatory Limitations: no limitations <Ellie Batista - Last Filed: 07/18/18 01:17> <Regi Morgan - Last Filed: 07/18/18 02:35> - General Chief complaint: Nausea/Vomiting/Diarrhea Stated complaint: Vomiting Time Seen by Provider: 07/17/18 21:34 - History of Present Illness Initial comments: 87-year-old female past medical history of hypertension presenting today for chief complaint of diarrhea 4 days. Patient states she began experiencing vomiting and diarrhea Saturday, she states 2 days later it resolved however today she began experiencing similar symptoms she states is mostly diarrhea with an episode of vomiting that was mostly bile. Patient states she has not been eating very much she is attempted to eat toast, crackers can barely keep down water. Patient denies any melena hematochezia or hematemesis. Patient denies r ecent hospitalization. Patient states she has not had sniffed abdominal pain however patient presented to her primary care provider today where she was provided Zofran and loperamide. Patient states after the loperamide she began experiencing crampy abdominal pain, she states she still had a loose stool upon arrival to the emergency department. Patient states the crampy abdominal pain as well as persistent diarrhea is what brought her in today for evaluation. Patient denies fever, night sweats or chills. Patient denies any recent constipation, surgery, chest pain dyspnea lower extremity swelling cough or upper respiratory symptoms. VS within acceptable limits. PATIENT APPEARS WELL AND NONTOXIC. AFEBRILE. (Ellie Batista) - Related Data Home Medications Medication Instructions Recorded Confirmed Ergocalciferol (Vitamin D2) 50,000 unit PO LEWIS 10/17/16 07/17/18 [Vitamin D2] Propylene Glycol/Peg 400/Pf 1 dropper BOTH EYES DAILY PRN 10/17/16 07/17/18 [Systane 0.3-0.4% Eye Drops] Acetaminophen [Tylenol 8 Hour] 650 mg PO Q8HR PRN 07/17/18 07/17/18 Diphenox-Atrop 2.5-0.025 mg 1 tab PO DIRECTED 07/17/18 07/17/18 [Lomotil] Estrogens, Conjugated Cream 1 applic VAGINAL HS 07/17/18 07/17/18 [Premarin Cream] Latanoprost/Pf [Latanoprost 0.005% 1 drop BOTH EYES HS 07/17/18 07/17/18 Eye Drop] Metoprolol Succinate [Toprol XL] 12.5 mg PO DAILY 07/17/18 07/17/18 Ondansetron HCl [Zofran] 8 mg PO TID 07/17/18 07/17/18 Timolol Maleate [Timolol Maleate 1 drop BOTH EYES DAILY 07/17/18 07/17/18 0.5% Ophth Gel] Vit C/E/Zn/Coppr/Lutein/Zeaxan 1 cap PO BID 07/17/18 07/17/18 [Preservision Areds 2 Softgel] Vitamin B Complex 1 cap PO DAILY 07/17/18 07/17/18 amLODIPine BESYLATE [Norvasc] 5 mg PO HS 07/17/18 07/17/18 amLODIPine [Norvasc] 2.5 mg PO DAILY 07/17/18 07/17/18 Previous Rx's Medication Instructions Recorded Losartan [Cozaar] 50 mg PO DAILY #0 tab 11/26/16 Allergies Allergy/AdvReac Type Severity Reaction Status Date / Time Penicillins Allergy Anaphylaxis Verified 07/17/18 21:23 Sulfa (Sulfonamide Allergy Rash/Hives Verified 07/17/18 21:23 Antibiotics) Review of Systems ROS Other: All systems not noted in ROS Statement are negative. <Ellie Batista L - Last Filed: 07/18/18 01:17> ROS Other: All systems not noted in ROS Statement are negative. <Regi Morgan P - Last Filed: 07/18/18 02:35> ROS Statement: Those systems with pertinent positive or pertinent negative responses have been documented in the HPI. Past Medical History Past Medical History: Eye Disorder, Hypertension Additional Past Medical History / Comment(s): GLAUCOMA BILAT EYES. RETINAL SWELLING History of Any Multi-Drug Resistant Organisms: None Reported Past Surgical History: Cholecystectomy, Joint Replacement Additional Past Surgical History / Comment(s): COLONOSCOPY. STENT TO RT EYE. TUBE TO LT EYE 2013. INJECTION LT EYE 10/16/16 FOR RETINAL SWELLING-GETS INJECTIONS APPROX. EVERY 5 WEEKS. RT TKA. polyp removal 10/19/16 Past Anesthesia/Blood Transfusion Reactions: Postoperative Nausea & Vomiting (PONV) Past Psychological History: No Psychological Hx Reported Smoking Status: Former smoker Past Alcohol Use History: None Reported Past Drug Use History: None Reported, Unable to Obtain - Past Family History Mother Family Medical History: No Reported History <Ellie Batista - Last Filed: 07/18/18 01:17> General Exam Limitations: no limitations <Ellie Batista - Last Filed: 07/18/18 01:17> - General Exam Comments Initial Comments: General: The patient is awake and alert, in no distress. Eye: +3 mm pupils are equal, round and reactive to light, extra-ocular movements are intact. No nystagmus. There is normal conjunctiva bilaterally. No signs of icterus. Ears, nose, mouth and throat: There are moist mucous membranes and no oral lesions. Neck: The neck is supple, there is no tenderness or JVD. Cardiovascular: There is a regular rate and rhythm. No murmur, rub or gallop is appreciated. Respiratory: Lungs are clear to auscultation, respirations are non-labored, breath sounds are equal. No wheezes, stridor, rales, or rhonchi. Gastrointestinal: Soft, non-distended, mild tenderness to palpation of the abdomen diffuses without masses or organomegaly noted. There is no rebound or guarding present. No CVA tenderness. Bowel sounds are unremarkable. Musculoskeletal: Normal ROM, no tenderness. Strength 5/5. Sensation intact. Radial pulses equal bilaterally 2+. Capillary refill 3 seconds. Neurological: A&O x 3. CN II-XII intact, There are no obvious motor or sensory deficits. Coordination appears grossly intact. Speech is normal. Skin: Skin is warm and dry and no rashes or lesions are noted. No lower extremity edema Psychiatric: Cooperative, appropriate mood & affect, normal judgment. (Ellie Batista) Course Vital Signs 07/17/18 07/18/18 07/18/18 21:18 00:19 01:51 Temperature 97.5 F L 97.8 F Pulse Rate 66 62 86 Respiratory 18 16 18 Rate Blood Pressure 163/88 158/78 133/79 O2 Sat by Pulse 96 98 95 Oximetry Medical Decision Making - Lab Data Result diagrams: 07/17/18 22:01 07/17/18 22:01 <Ellie Batista - Last Filed: 07/18/18 01:17> - Lab Data Result diagrams: 07/17/18 22:01 07/17/18 22:01 <Regi Morgan - Last Filed: 07/18/18 02:35> - Medical Decision Making 87-year-old female presenting for vomiting diarrhea 4 days. Patient has diffuse abdominal cramping after the administration of loperamide. Given patient's advanced age CT of the abdomen elicits contrast was obtained revealing multiple chronic conditions, as well as findings consistent with enteritis. Patient continues to have episodes of diarrhea throughout state emergency department. Stool cultures obtained outpatient pending. Laboratory studies reveal unremarkable electrolytes, no leukocytosis. Patient lipase elevated. At this time given patient's advanced age and continued diarrhea concern for dehydration. Patient be admitted for IV fluids. I discussed the case with him provider Dr. Morgan, she spoke with the admitting provider Dr. Mccord accepted admission. Patient is agreeable and prefers admission at this time denies questions. All findings of CT imaging studies were discussed with patient as well as laboratory studies. Pt transferred to the floor in stable condition appearing well. (Ellie Batista) I discussed patient care with Dr. Mccord per patient's primary care physician's preference. Dr. Mccord agreed with the plan for admission and an elderly female with nausea vomiting diarrhea and enteritis on computed tomography scan. (Regi Morgan) - Lab Data Lab Results 07/17/18 07/17/18 07/18/18 Range/Units 22:01 22:01 00:44 WBC 8.9 (3.8-10.6) k/uL RBC 4.78 (3.80-5.40) m/uL Hgb 14.3 (11.4-16.0) gm/dL Hct 42.6 (34.0-46.0) % MCV 89.2 (80.0-100.0) fL MCH 29.9 (25.0-35.0) pg MCHC 33.5 (31.0-37.0) g/dL RDW 12.9 (11.5-15.5) % Plt Count 217 (150-450) k/uL Neutrophils % 80 % Lymphocytes % 13 % Monocytes % 5 % Eosinophils % 1 % Basophils % 0 % Neutrophils # 7.1 (1.3-7.7) k/uL Lymphocytes # 1.2 (1.0-4.8) k/uL Monocytes # 0.5 (0-1.0) k/uL Eosinophils # 0.1 (0-0.7) k/uL Basophils # 0.0 (0-0.2) k/uL Sodium 137 (137-145) mmol/L Potassium 3.7 (3.5-5.1) mmol/L Chloride 105 (98-107) mmol/L Carbon Dioxide 23 (22-30) mmol/L Anion Gap 9 mmol/L BUN 16 (7-17) mg/dL Creatinine 0.54 (0.52-1.04) mg/dL Est GFR (CKD-EPI)AfAm >90 (>60 ml/min/1.73 sqM) Est GFR (CKD-EPI)NonAf 85 (>60 ml/min/1.73 sqM) Glucose 128 H (74-99) mg/dL Calcium 9.5 (8.4-10.2) mg/dL Total Bilirubin 0.6 (0.2-1.3) mg/dL AST 35 (14-36) U/L ALT 41 (9-52) U/L Alkaline Phosphatase 63 (38-126) U/L Total Protein 7.0 (6.3-8.2) g/dL Albumin 4.0 (3.5-5.0) g/dL Lipase 703 H (23-300) U/L Urine Color Light Yellow Urine Appearance Clear (Clear) Urine pH 5.0 (5.0-8.0) Ur Specific [place] 1.027 (1.001-1.035) Urine Protein Negative (Negative) Urine Glucose (UA) Negative (Negative) Urine Ketones Negative (Negative) Urine Blood Negative (Negative) Urine Nitrite Negative (Negative) Urine Bilirubin Negative (Negative) Urine Urobilinogen <2.0 (<2.0) mg/dL Ur Leukocyte Esterase Large H (Negative) Urine RBC 4 (0-5) /hpf Urine WBC 9 H (0-5) /hpf Ur Squamous Epith Cells 1 (0-4) /hpf Urine Mucus Rare H (None) /hpf Disposition Is patient prescribed a controlled substance at d/c from ED?: No Time of Disposition: 01:16 Decision to Admit Reason: Admit from EC Decision Date: 07/18/18 Decision Time: 01:16 <Ellie Batista - Last Filed: 07/18/18 01:17> <Regi Morgan - Last Filed: 07/18/18 02:35> Clinical Impression: Enteritis, Diarrhea, Vomiting, Dehydration, Elevated lipase Disposition: ADMITTED IP TO THIS [facility] Condition: Stable
[2018-07-18] MEDS: SODIUM CHLORIDE 0.9% 1,000 ML IV SCH ×2 (01:50→22:21)
[2018-07-18] MEDS ORDERED: ARTIFICIAL TEARS-HYPROMELLOSE DROPS 15 ML BTL BOTH EYES PRN (09:11)
--- NOTE | 2018-07-18 09:11 | CT ---
EXAMINATION TYPE: CT abdomen pelvis w con DATE OF EXAM: 07/18/2018 HISTORY: Abdominal pain not further specified. CT DLP: 1025.9mGycm Automated Exposure Control for Dose Reduction was Utilized. CONTRAST: CT scan of the abdomen and pelvis is performed without oral but with IV Contrast, patient injected wi th 100mL mL of Isovue 300. COMPARISON: CT abdomen and pelvis November 24, 2016 FINDINGS: LUNG BASES: There is persistent left basilar linear scarring and/or atelectasis. Right coronary arter y calcification is redemonstrated. Calcification of mitral and aortic root noted. LIVER/GB: Calcification right hepatic lobe redemonstrated. Common bile duct mildly dilated at 13 mm a t marce hepatis with gradual tapering to ampulla, no obstructing mass or calculus identified. Gallbla dder not distinctly visualized presumed surgically absent. No significant change from prior. PANCREAS: Redemonstration of nondilated pancreatic duct noted. SPLEEN: No significant abnormality is seen. ADRENALS: No significant abnormality is seen. KIDNEYS: Cortical thinning both kidneys is redemonstrated. Symmetric cortical medullary uptake and ex cretion is noted without hydronephrosis. Bladder wall thickness is mildly thickened measuring up to 6 mm. Cannot exclude acute cystitis, correlate clinically. BOWEL: Evaluation bowel slightly suboptimal secondary to lack of enteric contrast. Stomach is poorly distended and thus suboptimally evaluated. There is some diverticula scattered throughout the colon w ithout CT evidence for acute diverticulitis. There is no suspicious small or large bowel dilatation. Some scattered air-fluid levels in mildly prominent small bowel loops. UTERUS/ADNEXA: Uterus and ovaries felt within normal limits LYMPH NODES: No greater than 1cm abdominal or pelvic lymph nodes are appreciated. OSSEOUS STRUCTURES: Vacuum disc phenomenon with moderate disc space narrowing L4-L5 level is redemons trated. Mild to moderate narrowing and spurring both hip joints is seen. OTHER: Moderate calcified plaque of aorta extends into branch vessels. Stable tiny fat-containing umb ilical hernia. Injection granulomas posterior gluteal tissue redemonstrated. IMPRESSION: 1. Cannot exclude acute cystitis, correlate clinically. Cannot exclude acute enteritis with a few sca ttered air-fluid levels in slightly prominent small bowel loops. No obstruction is present. No signif icant change otherwise seen from recent CT. Preliminary report was provided by [employer].
[2018-07-18] MEDS: ONDANSETRON 4 MG/2 ML VIAL IVP PRN (09:15)
[2018-07-18] MEDS ORDERED: PANTOPRAZOLE 40 MG/10 ML VIAL IVP SCH (10:00)
--- NOTE | 2018-07-18 10:07 | P.HPIM ---
History of Present Illness H&P Date: 07/18/18 Is as an 87-year-old female patient of Dr. Seo. Patient presented to the hospital with complaints of 4 days of abdominal pain with diarrhea nausea. Patient reports that approximately 4 days ago she started to experiencing diarrhea not being able to tolerate diet. Patient thought she was improving but symptoms increased yesterday warranting her to come to the hospital for further evaluation. Patient has a past medical history of glaucoma, cholecystectomy, hypertension and anxiety. Patient does report her last colonoscopy was a few years ago she does not recall the exact date but everything was normal. Patient denies any alcohol use. Lipase on admission 703. CT of the abdomen and pelvis completed showing findings that cannot exclude acute cystitis Correlate clinically bleed. Cannot exclude acute arthritis with a few scattered air-fluid levels is slightly prominent small bowel loops. No obstruction is present. No significant change. At this time patient is still complaining of some abdominal discomfort. Patient is still having diarrhea with nausea. Patient denies any chest pain or shortness breath. Patient did have positive UA. Patient denies any burning with urination or frequency. Urine culture has been ordered Review of Systems please refer to HPI otherwise unremarkable Past Medical History Past Medical History: Eye Disorder, Hypertension Additional Past Medical History / Comment(s): GLAUCOMA BILAT EYES. RETINAL SWELLING History of Any Multi-Drug Resistant Organisms: None Reported Past Surgical History: Cholecystectomy, Joint Replacement Additional Past Surgical History / Comment(s): COLONOSCOPY. STENT TO RT EYE. TUBE TO LT EYE 2013. INJECTION LT EYE 10/16/16 FOR RETINAL SWELLING-GETS INJECTIONS APPROX. EVERY 5 WEEKS. RT TKA. polyp removal 10/19/16 Past Anesthesia/Blood Transfusion Reactions: Postoperative Nausea & Vomiting (PONV) Past Psychological History: No Psychological Hx Reported Smoking Status: Never smoker Past Alcohol Use History: None Reported Additional Past Alcohol Use History / Comment(s): QUIT OVER 50 YRS AGO Past Drug Use History: None Reported, Unable to Obtain - Past Family History Mother Family Medical History: No Reported History Medications and Allergies Home Medications Medication Instructions Recorded Confirmed Type Ergocalciferol (Vitamin D2) 50,000 unit PO LEWIS 10/17/16 07/17/18 History [Vitamin D2] Propylene Glycol/Peg 400/Pf 1 dropper BOTH EYES DAILY PRN 10/17/16 07/17/18 Hi story [Systane 0.3-0.4% Eye Drops] Losartan [Cozaar] 50 mg PO DAILY #0 tab 11/26/16 07/17/18 Rx Acetaminophen [Tylenol 8 Hour] 650 mg PO Q8HR PRN 07/17/18 07/17/18 History Diphenox-Atrop 2.5-0.025 mg 1 tab PO DIRECTED 07/17/18 07/17/18 History [Lomotil] Estrogens, Conjugated Cream 1 applic VAGINAL HS 07/17/18 07/17/18 History [Premarin Cream] Latanoprost/Pf [Latanoprost 0.005% 1 drop BOTH EYES HS 07/17/18 07/17/18 History Eye Drop] Metoprolol Succinate [Toprol XL] 12.5 mg PO DAILY 07/17/18 07/17/18 History Ondansetron HCl [Zofran] 8 mg PO TID 07/17/18 07/17/18 History Timolol Maleate [Timolol Maleate 1 drop BOTH EYES DAILY 07/17/18 07/17/18 History 0.5% Ophth Gel] Vit C/E/Zn/Coppr/Lutein/Zeaxan 1 cap PO BID 07/17/18 07/17/18 History [Preservision Areds 2 Softgel] Vitamin B Complex 1 cap PO DAILY 07/17/18 07/17/18 History amLODIPine BESYLATE [Norvasc] 5 mg PO HS 07/17/18 07/17/18 History amLODIPine [Norvasc] 2.5 mg PO DAILY 07/17/18 07/17/18 History Allergies Allergy/AdvReac Type Severity Reaction Status Date / Time Penicillins Allergy Anaphylaxis Verified 07/17/18 21:23 Sulfa (Sulfonamide Allergy Rash/Hives Verified 07/17/18 21:23 Antibiotics) Physical Exam Vitals: Vital Signs Temp Pulse Pulse Resp BP BP Pulse Ox 07/18/18 07:00 97.7 F 68 15 122/71 94 L 07/18/18 02:15 97.7 F 71 16 151/74 96 07/18/18 01:51 86 18 133/79 95 07/18/18 00:19 97.8 F 62 16 158/78 98 07/17/18 21:18 97.5 F L 66 18 163/88 96 Intake and Output 07/17/18 07/18/18 07/18/18 22:59 06:59 14:59 Intake Total 400 Balance 400 Intake: Oral 400 Other: # Voids 1 Weight 84.822 kg Head normocephalic Neck supple Lungs clear to auscultation bilaterally no wheezing or crackles Heart regular rate and rhythm S1-S2, no rub or gallop Abdomen is soft nontender nondistended positive bowel sounds no hepatosplenomegaly Extremities no edema Neuro alert and orientated to 3 Results CBC & Chem 7: 07/17/18 22:01 07/17/18 22:01 Labs: Abnormal Lab Results - Last 24 Hours (Table) 07/17/18 07/18/18 Range/Units 22: 00:44 Glucose 128 H (74-99) mg/dL Lipase 703 H (23-300) U/L Ur Leukocyte Esterase Large H (Negative) Urine WBC 9 H (0-5) /hpf Urine Mucus Rare H (None) /hpf Thrombosis Risk Factor Assmnt - Choose All That Apply Any of the Below Risk Factors Present?: Yes Each Factor Represents 1 point: Obesity (BMI >25) Other Risk Factors: Yes Each Risk Factor Represents 3 Points: Age 75 years or older Other congenital or acquired thrombophilia - If yes, enter type in comment: No Thrombosis Risk Factor Assessment Total Risk Factor Score: 4 Thrombosis Risk Factor Assessment Level: Moderate Risk Assessment and Plan Assessment: 1. Abdominal pain with diarrhea. Lipase elevated at 703. CT of abdomen and pelvis completed showing findings I cannot exclude acute cystitis, correlate clinically. Cannot exclude acute enteritis with few scattered air-fluid levels in slightly prominent small bowel loops. No obstruction is presentchange otherwise seen from recent CT. Repeat labs have been ordered. Stool culture and C. diff stool sample ordered. GI services have been consulted 2. History of glaucoma. Home eyedrops resumed 3. History of essential hypertension. Home meds resumed 4. History of cholecystectomy 5. Increased anxiety. Patient reports she does take an excess home. Will order a Xanax at this time 6. Positive urinary analysis. UA showing positive leukocyte esterase. Patient denies any symptoms at this time urine culture ordered DVT prophylaxis Lovenox. GI prophylaxis Protonix Time with Patient: Greater than 30 (Greater than 60% of the total time spent in counseling and coordination of care. I performed an examination of the patient and discussed their management with the Nurse Practitioner. I have reviewed the Nurse Practitioner's notes and agree with the documented findings and plan of care)
[2018-07-18 10:27] LABS: Basophils % (A) 0 %; Eosinophils # (A) 0.1 k/uL (0-0.7); Eosinophils % (A) 2 %; HCT 39.5 % (34.0-46.0); HGB 13.1 gm/dL (11.4-16.0); Lymphocytes # (A) 1.3 k/uL (1.0-4.8); Lymphocytes % (A) 28 %; MCH 30.1 pg (25.0-35.0); MCHC 33.2 g/dL (31.0-37.0); MCV 90.4 fL (80.0-100.0); Mean Platelet Volume 8.1; Monocytes # (A) 0.4 k/uL (0-1.0); Monocytes % (A) 8 %; Neutrophils # (A) 2.8 k/uL (1.3-7.7); Neutrophils % (A) 60 %; Platelet Count 195 k/uL (150-450); RBC 4.37 m/uL (3.80-5.40); RDW 13.3 % (11.5-15.5); WBC 4.6 k/uL (3.8-10.6)
[2018-07-18 10:36] LABS: ALT 38 U/L (9-52); AST 28 U/L (14-36); Albumin 3.4 g/dL (3.5-5.0); Alkaline Phosphatase 49 U/L (38-126); Amylase 47 U/L (30-110); Anion Gap 7 mmol/L; Blood Urea Nitrogen 12 mg/dL (7-17); Calcium 8.7 mg/dL (8.4-10.2); Carbon Dioxide 24 mmol/L (22-30); Chloride 107 mmol/L (98-107); Glucose 102 mg/dL (74-99); Lipase 141 U/L (23-300); Potassium 3.4 mmol/L (3.5-5.1); Sodium 138 mmol/L (137-145); Total Bilirubin 0.7 mg/dL (0.2-1.3); Total Protein 6.1 g/dL (6.3-8.2)
[2018-07-18] MEDS: ALPRAZolam 0.25 MG TAB PO PRN (10:36)
[2018-07-18] MEDS: METOPROLOL SUCCINATE (ER) 25 MG TAB.ER.24H PO SCH (10:37)
--- NOTE | 2018-07-18 13:17 | P.CONS ---
History of Present Illness - Reason for Consult Consult date: 07/18/18 Abdominal pain Requesting physician: Deion Mccord - Chief Complaint Abdominal pain - History of Present Illness 87-year-old female past medical history cholecystectomy, admitted with nonbloody diarrhea and nausea dry heaves lower abdominal pain one week. Patient saw her PCP was placed on antidiarrheals with improvement in diarrhea but then caused increased abdominal discomfort constipation. Hemoglobin 13.1. White count 4.6. Sodium 138. Potassium 3.4. BUN 12. Creatinine 0.5. Lipase 703 decreased to 141. Amylase 47. LFTs normal. CT abdomen could not exclude cystitis. Acute enteritis with diffuse scattered air-fluid levels and a slightly prominent small bowel loops cannot be exclude. No obstruction. Flexible sigmoidoscopy September 2016 for large rectal polyp noted on previous colonoscopy in June 2016. 2 cm residual polyp in the distal rectum status post snare polypectomy APC sigmoid diverticulosis biopsy consistent with fragmented tubulovillous adenoma. Presently feels well minimal abdominal discomfort tolerating diet. Review of Systems RConstitutional: Denies fever, chills, sweats, weight gain, or loss. HEENT: Negative for migraines, blurred vision or loss, earaches, drainage, tinnitus, oral mucosal lesions, dysphagia, or odynophagia. CARDIAC: Negative for chest pain, arrhythmias, or palpitation. RESPIRATORY: Negative for shortness of breath, hemoptysis, cough, or sputum production. GI: See HPI for pertinent findings. : Negative for hematuria, urgency, frequency, polyuria, or dysuria. GYNc: Denies possibility of . Negative vaginal discharge. MUSCULOSKELETAL: Negative for muscle aches, swelling, arthritis, and arthralgias. NEUROLOGIC: Negative for stroke or TIA. ENDOCRINE: Negative for thyroid problems. SKIN: Negative for rash or itching. PSYCHIATRIC: Negative history for depression and anxietyale Past Medical History Past Medical History: Eye Disorder, Hypertension Additional Past Medical History / Comment(s): GLAUCOMA BILAT EYES. RETINAL SWELLING History of Any Multi-Drug Resistant Organisms: None Reported Past Surgical History: Cholecystectomy, Joint Replacement Additional Past Surgical History / Comment(s): COLONOSCOPY. STENT TO RT EYE. TUBE TO LT EYE 2013. INJECTION LT EYE 10/16/16 FOR RETINAL SWELLING-GETS INJECTIONS APPROX. EVERY 5 WEEKS. RT TKA. polyp removal 10/19/16 Past Anesthesia/Blood Transfusion Reactions: Postoperative Nausea & Vomiting (PONV) Past Psychological History: No Psychological Hx Reported Smoking Status: Never smoker Past Alcohol Use History: None Reported Additional Past Alcohol Use History / Comment(s): QUIT OVER 50 YRS AGO Past Drug Use History: None Reported, Unable to Obtain - Past Family History Mother Family Medical History: No Reported History Medications and Allergies Home Medications Medication Instructions Recorded Confirmed Type Ergocalciferol (Vitamin D2) 50,000 unit PO LEWIS 10/17/16 07/17/18 History [Vitamin D2] Propylene Glycol/Peg 400/Pf 1 dropper BOTH EYES DAILY PRN 10/17/16 07/17/18 History [Systane 0.3-0.4% Eye Drops] Losartan [Cozaar] 50 mg PO DAILY #0 tab 11/26/16 07/17/18 Rx Acetaminophen [Tylenol 8 Hour] 650 mg PO Q8HR PRN 07/17/18 07/17/18 History Diphenox-Atrop 2.5-0.025 mg 1 tab PO DIRECTED 07/17/18 07/17/18 History [Lomotil] Estrogens, Conjugated Cream 1 applic VAGINAL HS 07/17/18 07/17/18 History [Premarin Cream] Latanoprost/Pf [Latanoprost 0.005% 1 drop BOTH EYES HS 07/17/18 07/17/18 History Eye Drop] Metoprolol Succinate [Toprol XL] 12.5 mg PO DAILY 07/17/18 07/17/18 History Ondansetron HCl [Zofran] 8 mg PO TID 07/17/18 07/17/18 History Timolol Maleate [Timolol Maleate 1 drop BOTH EYES DAILY 07/17/18 07/17/18 History 0.5% Ophth Gel] Vit C/E/Zn/Coppr/Lutein/Zeaxan 1 cap PO BID 07/17/18 07/17/18 History [Preservision Areds 2 Softgel] Vitamin B Complex 1 cap PO DAILY 07/17/18 07/17/18 History amLODIPine BESYLATE [Norvasc] 5 mg PO HS 07/17/18 07/17/18 History amLODIPine [Norvasc] 2.5 mg PO DAILY 07/17/18 07/17/18 History Allergies Allergy/AdvReac Type Severity Reaction Status Date / Time Penicillins Allergy Anaphylaxis Verified 07/17/18 21:23 Sulfa (Sulfonamide Allergy Rash/Hives Verified 07/17/18 21:23 Antibiotics) Physical Exam Vitals: Vital Signs Temp Pulse Pulse Resp BP BP Pulse Ox 07/18/18 07:00 97.7 F 68 15 122/71 94 L 07/18/18 02:15 97.7 F 71 16 151/74 96 07/18/18 01:51 86 18 133/79 95 07/18/18 00:19 97.8 F 62 16 158/78 98 07/17/18 21:18 97.5 F L 66 18 163/88 96 Intake and Output 07/17/18 07/18/18 07/18/18 22:59 06:59 14:59 Intake Total 400 Balance 400 Intake: Oral 400 Other: # Voids 1 Weight 84.822 kg General appearance: The patient is alert, oriented, in no acute distress. HET: Head is normocephalic and atraumatic. Pupils are equal and reactive. Oropharynx is clear without lesions. Neck: Supple without lymphadenopathy. Trachea midline. Heart: S1 S2. Regular rate and rhythm. Lungs: No crackles or wheezes are heard. Abdomen: Soft, nontender, nondistended with bowel sounds. No peritoneal signs. No palpable organomegaly or masses. Extremities: Normal skin color and turgor. No cyanosis, rash, ulceration, clubbing, or edema. Radial and pedal pulses are 2/4 bilaterally. Neurological: No focal deficits. Strength and sensation are grossly intact. Results CBC & Chem 7: 07/18/18 09:57 07/18/18 09:57 Labs: Abnormal Lab Results - Last 24 Hours (Table) 07/17/18 07/18/18 07/18/18 Range/Units 22:01 00:44 09:57 Potassium 3.4 L (3.5-5.1) mmol/L Glucose 128 H 102 H (74-99) mg/dL Total Protein 6.1 L (6.3-8.2) g/dL Albumin 3.4 L (3.5-5.0) g/dL Lipase 703 H (23-300) U/L Ur Leukocyte Esterase Large H (Negative) Urine WBC 9 H (0-5) /hpf Urine Mucus Rare H (None) /hpf CT scan - abdomen: report reviewed (Dr. Swanson) Assessment and Plan (1) Abdominal pain Narrative/Plan: 87-year-old female presents with abdominal pain nonbloody diarrhea 1 week duration with clinical improvement isolated episode of elevated serum lipase with resolution etiology unclear. Suspect component acute gastroenteritis under lying subacute pancreatitis cannot be excluded. CT imaging mildly dilated CBD 13 mm no obstructing mass or calculus identified. LFTs within normal limits. Current Visit: Yes Status: Acute Code(s): R10.9 - UNSPECIFIED ABDOMINAL PAIN SNOMED Code(s): 30611864 (2) Diarrhea Current Visit: Yes Status: Acute Code(s): R19.7 - DIARRHEA, UNSPECIFIED SNOMED Code(s): 36807016 Plan: 1. Diarrhea has resolved. Abdominal pain improved. Amylase lipase within normal limits. Proceed with conservative measures supportive care. Diet as tolerated. Discharge per medicine. Thank you for this kind referral and the opportunity to participate in the care of your patient. This consultation was discussed with Dr. Swanson. The impression and plan of care have been directed as dictated.
[2018-07-18] MEDS: LEVOFLOXACIN 500MG-D5W PMX 500 MG in DEXTROSE/WATER 1 100ML.BAG IVPB SCH (15:38)
[2018-07-18] MEDS: LATANOPROST 0.005% OPHTH DROPS 2.5 ML BTL BOTH EYES SCH (20:12)
[2018-07-18] MEDS: amLODIPine 5 MG TAB PO SCH (20:12)
[2018-07-19 07:32] LABS: Basophils % (A) 1 %; Eosinophils # (A) 0.1 k/uL (0-0.7); Eosinophils % (A) 2 %; HGB 12.1 gm/dL (11.4-16.0); Lymphocytes # (A) 1.5 k/uL (1.0-4.8); Lymphocytes % (A) 35 %; MCHC 33.7 g/dL (31.0-37.0); MCV 88.9 fL (80.0-100.0); Mean Platelet Volume 7.4; Monocytes # (A) 0.3 k/uL (0-1.0); Monocytes % (A) 7 %; Neutrophils # (A) 2.3 k/uL (1.3-7.7); Neutrophils % (A) 53 %; Platelet Count 200 k/uL (150-450); RBC 4.05 m/uL (3.80-5.40); WBC 4.4 k/uL (3.8-10.6)
[2018-07-19 07:45] LABS: ALT 34 U/L (9-52); AST 22 U/L (14-36); Albumin 3.1 g/dL (3.5-5.0); Alkaline Phosphatase 45 U/L (38-126); Anion Gap 6 mmol/L; Blood Urea Nitrogen 10 mg/dL (7-17); Carbon Dioxide 22 mmol/L (22-30); Chloride 111 mmol/L (98-107); Glucose 83 mg/dL (74-99); Magnesium 1.7 mg/dL (1.6-2.3); Potassium 3.5 mmol/L (3.5-5.1); Sodium 139 mmol/L (137-145); Total Bilirubin 0.6 mg/dL (0.2-1.3); Total Protein 5.7 g/dL (6.3-8.2)
[2018-07-19] MEDS: ONDANSETRON 4 MG/2 ML VIAL IVP PRN (07:54)
[2018-07-19] MEDS: amLODIPine 2.5 MG TAB PO SCH (08:52)
[2018-07-19] MEDS: ENOXAPARIN 40 MG/0.4 ML SYRINGE SQ SCH (08:52)
[2018-07-19] MEDS: PANTOPRAZOLE 40 MG TABLET PO SCH (08:53)
[2018-07-19] MEDS: TIMOLOL 0.5% OPHTH DROPS 5 ML BTL BOTH EYES SCH (08:53)
[2018-07-19] MEDS: LOSARTAN 50 MG TAB PO SCH (08:53)
[2018-07-19] MEDS: METOPROLOL SUCCINATE (ER) 25 MG TAB.ER.24H PO SCH (08:53)
[2018-07-19] MEDS: ALPRAZolam 0.25 MG TAB PO PRN (09:00)
--- NOTE | 2018-07-19 10:42 | P.GSCN ---
History of Present Illness Consult date: 07/19/18 Reason for Consult: Abdominal pain, bloating History of present illness: This is a 87-year-old female who was admitted to the hospital complaints of abdominal pain and bloating. Patient noted have an elevated lipase she also is thought to have evidence of enteritis on CAT scan. Patient states she feels better today. She's had a previous cholecystectomy 20+ years ago Past Medical History Past Medical History: Eye Disorder, Hypertension Additional Past Medical History / Comment(s): GLAUCOMA BILAT EYES. RETINAL SWELLING History of Any Multi-Drug Resistant Organisms: None Reported Past Surgical History: Cholecystectomy, Joint Replacement Additional Past Surgical History / Comment(s): COLONOSCOPY. STENT TO RT EYE. TUBE TO LT EYE 2013. INJECTION LT EYE 10/16/16 FOR RETINAL SWELLING-GETS INJEC TIONS APPROX. EVERY 5 WEEKS. RT TKA. polyp removal 10/19/16 Past Anesthesia/Blood Transfusion Reactions: Postoperative Nausea & Vomiting (PONV) Past Psychological History: No Psychological Hx Reported Smoking Status: Never smoker Past Alcohol Use History: None Reported Additional Past Alcohol Use History / Comment(s): QUIT OVER 50 YRS AGO Past Drug Use History: None Reported, Unable to Obtain - Past Family History Mother Family Medical History: No Reported History Medications and Allergies Home Medications Medication Instructions Recorded Confirmed Type Ergocalciferol (Vitamin D2) 50,000 unit PO LEWIS 10/17/16 07/17/18 History [Vitamin D2] Propylene Glycol/Peg 400/Pf 1 dropper BOTH EYES DAILY PRN 10/17/16 07/17/18 History [Systane 0.3-0.4% Eye Drops] Losartan [Cozaar] 50 mg PO DAILY #0 tab 11/26/16 07/17/18 Rx Acetaminophen [Tylenol 8 Hour] 650 mg PO Q8HR PRN 07/17/18 07/17/18 History Diphenox-Atrop 2.5-0.025 mg 1 tab PO DIRECTED 07/17/18 07/17/18 History [Lomotil] Estrogens, Conjugated Cream 1 applic VAGINAL HS 07/17/18 07/17/18 History [Premarin Cream] Latanoprost/Pf [Latanoprost 0.005% 1 drop BOTH EYES HS 07/17/18 07/17/18 History Eye Drop] Metoprolol Succinate [Toprol XL] 12.5 mg PO DAILY 07/17/18 07/17/18 History Ondansetron HCl [Zofran] 8 mg PO TID 07/17/18 07/17/18 History Timolol Maleate [Timolol Maleate 1 drop BOTH EYES DAILY 07/17/18 07/17/18 History 0.5% Ophth Gel] Vit C/E/Zn/Coppr/Lutein/Zeaxan 1 cap PO BID 07/17/18 07/17/18 History [Preservision Areds 2 Softgel] Vitamin B Complex 1 cap PO DAILY 07/17/18 07/17/18 History amLODIPine BESYLATE [Norvasc] 5 mg PO HS 07/17/18 07/17/18 History amLODIPine [Norvasc] 2.5 mg PO DAILY 07/17/18 07/17/18 History Allergies Allergy/AdvReac Type Severity Reaction Status Date / Time Penicillins Allergy Anaphylaxis Verified 07/17/18 21:23 Sulfa (Sulfonamide Allergy Rash/Hives Verified 07/17/18 21:23 Antibiotics) Surgical - Exam Vital Signs Temp Pulse Resp BP Pulse Ox 97.5 F L 66 18 163/88 96 07/17/18 21:18 07/17/18 21:18 07/17/18 21:18 07/17/18 21:18 07/17/18 21:18 - General well developed, well nourished, no distress - Eyes PERRL - ENT normal pinna - Neck no masses - Respiratory normal expansion - Abdomen Abdomen: soft, non tender Results - Labs 07/19/18 06:52 07/19/18 06:52 Abnormal Lab Results - Last 24 Hours (Table) 07/19/18 Range/Units 06:52 Chloride 111 H (98-107) mmol/L Total Protein 5.7 L (6.3-8.2) g/dL Albumin 3.1 L (3.5-5.0) g/dL Microbiology - Last 24 Hours (Table) 07/18/18 17:00 Stool Culture - Preliminary Stool 07/18/18 11:00 Urine Culture - Preliminary Urine,Voided Diabetes panel 07/19/18 Range/Units 06:52 Sodium 139 (137-145) mmol/L Potassium 3.5 (3.5-5.1) mmol/L Chloride 111 H (98-107) mmol/L Carbon Dioxide 22 (22-30) mmol/L BUN 10 (7-17) mg/dL Creatinine 0.56 (0.52-1.04) mg/dL Glucose 83 (74-99) mg/dL Calcium 9.0 (8.4-10.2) mg/dL AST 22 (14-36) U/L ALT 34 (9-52) U/L Alkaline Phosphatase 45 (38-126) U/L Total Protein 5.7 L (6.3-8.2) g/dL Albumin 3.1 L (3.5-5.0) g/dL Calcium panel 07/19/18 Range/Units 06:52 Calcium 9.0 (8.4-10.2) mg/dL Albumin 3.1 L (3.5-5.0) g/dL Pituitary panel 07/19/18 Range/Units 06:52 Sodium 139 (137-145) mmol/L Potassium 3.5 (3.5-5.1) mmol/L Chloride 111 H (98-107) mmol/L Carbon Dioxide 22 (22-30) mmol/L BUN 10 (7-17) mg/dL Creatinine 0.56 (0.52-1.04) mg/dL Glucose 83 (74-99) mg/dL Calcium 9.0 (8.4-10.2) mg/dL Adrenal panel 07/19/18 Range/Units 06:52 Sodium 139 (137-145) mmol/L Potassium 3.5 (3.5-5.1) mmol/L Chloride 111 H (98-107) mmol/L Carbon Dioxide 22 (22-30) mmol/L BUN 10 (7-17) mg/dL Creatinine 0.56 (0.52-1.04) mg/dL Glucose 83 (74-99) mg/dL Calcium 9.0 (8.4-10.2) mg/dL Total Bilirubin 0.6 (0.2-1.3) mg/dL AST 22 (14-36) U/L ALT 34 (9-52) U/L Alkaline Phosphatase 45 (38-126) U/L Total Protein 5.7 L (6.3-8.2) g/dL Albumin 3.1 L (3.5-5.0) g/dL Assessment and Plan Assessment: Resolving abdominal pain. Patient feels much better today. She may have had a gastroenteritis which is resolved. No surgical intervention is planned.
--- NOTE | 2018-07-19 11:09 | PN ---
PROGRESS NOTE DATE OF SERVICE: 07/19/2018 The patient is an 87 -year-old pleasant white female admitted to the hospital with acute onset of severe diarrhea that started approximately a week ago. She had 3-4 loose watery bowel movements daily, associated with cramping abdominal pain and nausea vomiting for the last [address] Sarahy Seo her PCP and was given Imodium and the diarrhea resolved. However, she started having abdominal bloating and gassiness, which became intolerable and hence she came into the emergency room and subsequently admitted to the hospital for further evaluation. Since being in the hospital, she is feeling much better. She still has some nausea. She had two loose bowel movements yesterday. No bleeding. This morning on a regular diet, tolerating well. PHYSICAL EXAMINATION: She appears comfortable. No apparent distress. VITAL SIGNS: Stable. Blood pressure is 132/86, pulse is 65, temperature 97.7. HEENT examination unremarkable. Conjunctivae pink. Sclerae anicteric. Oral cavity no lesions. Neck no jugular venous distention or lymph node enlargement. Chest was clear to auscultation. HEART: Regular rate and rhythm. ABDOMEN: Soft. Bowel sounds are positive. No organomegaly. Extremities: No pedal edema. Skin no rashes. NEUROLOGIC: Alert and oriented x3. No focal deficits. LABS: Done at the time of admission to the hospital, WBC 4.4, hemoglobin 12.1, platelets are normal. Basic metabolic panel is within normal limits. Stool for C difficile toxin is negative. IMPRESSION: Acute onset of nonbloody diarrhea of 1 week duration, possibly infectious colitis. She is on empiric antibiotics with Levaquin. The symptoms are gradually improving. She did have a CT of the abdomen and pelvis done that was unremarkable. Her last colonoscopy was in June of 2016 and was noted to have a large rectal polyp that was removed endoscopically and she had a repeat surveillance colonoscopy and sigmoidoscopy in September of 2015 at which time she was noted to have a small residual polyp that was also completely removed. RECOMMENDATIONS: 1. Advance diet as tolerated. 2. Antimotility agents as needed. 3. If she continues to do well, she can be discharged home later today or tomorrow with an outpatient follow up in 2 weeks. Thank you for this consultation. MMODL / IJN: [id number] /
--- NOTE | 2018-07-19 11:40 | P.PN ---
Subjective Progress Note Date: 07/19/18 Is as an 87-year-old female patient of Dr. Seo. Patient presented to the hospital with complaints of 4 days of abdominal pain with diarrhea nausea. Patient reports that approximately 4 days ago she started to experiencing diarrhea not being able to tolerate diet. Patient thought she was improving but symptoms increased yesterday warranting her to come to the hospital for further evaluation. Patient has a past medical history of glaucoma, cholecystectomy, hypertension and anxiety. Patient does report her last colonoscopy was a few years ago she does not recall the exact date but everything was normal. Patient denies any alcohol use. Lipase on admission 703. CT of the abdomen and pelvis completed showing findings that cannot exclude acute cystitis Correlate clinically bleed. Cannot exclude acute arthritis with a few scattered air-fluid levels is slightly prominent small bowel loops. No obstruction is present. No significant change. At this time patient is still complaining of some abdominal discomfort. Patient is still having diarrhea with nausea. Patient denies any chest pain or shortness breath. Patient did have positive UA. Patient denies any burning with urination or frequency. Urine culture has been ordered On 07/19/2018 patient was seen and examined on the medical floor she is complaining of severe nausea otherwise she denies any complaints there is no fev er or chills no headache or dizziness no chest pain no shortness of breath no vomiting no abdominal pain patient had no oral intake today due to severe nausea that is no diarrhea no burning was urination no frequency or urgency and no hematuria Objective - Vital Signs Vital signs: Vital Signs Temp 97.7 F 07/19/18 08:16 Pulse 73 07/19/18 08:16 Resp 16 07/19/18 08:16 BP 134/68 07/19/18 08:16 Pulse Ox 96 07/19/18 08:16 Intake & Output 07/18/18 07/19/18 07/19/18 18:59 06:59 18:59 Intake Total 760 980 240 Balance 760 980 240 Intake: Intake, IV Titration 500 Amount Sodium Chloride 0.9% 1, 500 000 ml @ 50 mls/hr IV . Q20H [facility] Rx#:[id number] Oral 760 480 240 Other: Voiding Method Toilet # Voids 6 2 - Exam Head normocephalic and atraumatic Neck supple no JVD no goiter Lungs clear to auscultation bilaterally no wheezing or crackles Heart regular rate and rhythm S1-S2, no rub or gallop Abdomen is soft nontender nondistended positive bowel sounds no hepatosplenomegaly Extremities no edema no cyanosis or clubbing Neuro alert and orientated to 3 - Labs CBC & Chem 7: 07/19/18 06:52 07/19/18 06:52 Labs: Abnormal Lab Results - Last 24 Hours (Table) 07/19/18 Range/Units 06:52 Chloride 111 H (98-107) mmol/L Total Protein 5.7 L (6.3-8.2) g/dL Albumin 3.1 L (3.5-5.0) g/dL Microbiology - Last 24 Hours (Table) 07/18/18 11:00 Urine Culture - Final Urine,Voided 07/18/18 17:00 Stool Culture - Preliminary Stool Assessment and Plan Plan: 1. Abdominal pain with diarrhea. Lipase elevated at 703. CT of abdomen and pelvis completed showing findings I cannot exclude acute cystitis, correlate clinically. Cannot exclude acute enteritis with few scattered air-fluid levels in slightly prominent small bowel loops. No obstruction is presentchange otherwise seen from recent CT. Repeat labs have been ordered. Stool culture and C. diff stool sample ordered. GI services have been consulted 2. History of glaucoma. Home eyedrops resumed 3. History of essential hypertension. Home meds resumed 4. History of cholecystectomy 5. Increased anxiety. Patient reports she does take an excess home. Will order a Xanax at this time 6. Positive urinary analysis. UA showing positive leukocyte esterase. Patient denies any symptoms at this time urine culture ordered DVT prophylaxis Lovenox. GI prophylaxis Protonix
[2018-07-19] MEDS: LEVOFLOXACIN 500MG-D5W PMX 500 MG in DEXTROSE/WATER 1 100ML.BAG IVPB SCH (16:34)
[2018-07-19] MEDS: SODIUM CHLORIDE 0.9% 1,000 ML IV SCH (16:44)
[2018-07-19] MEDS: LATANOPROST 0.005% OPHTH DROPS 2.5 ML BTL BOTH EYES SCH (19:51)
[2018-07-19] MEDS: amLODIPine 5 MG TAB PO SCH (20:21)
[2018-07-20 08:08] LABS: Basophils % (A) 1 %; Eosinophils # (A) 0.1 k/uL (0-0.7); Eosinophils % (A) 3 %; HCT 36.2 % (34.0-46.0); Lymphocytes # (A) 1.6 k/uL (1.0-4.8); Lymphocytes % (A) 38 %; MCH 29.7 pg (25.0-35.0); MCV 90.2 fL (80.0-100.0); Monocytes # (A) 0.4 k/uL (0-1.0); Monocytes % (A) 9 %; Neutrophils % (A) 47 %; Platelet Count 206 k/uL (150-450); RBC 4.02 m/uL (3.80-5.40); RDW 13.5 % (11.5-15.5); WBC 4.4 k/uL (3.8-10.6)
[2018-07-20 08:25] LABS: ALT 31 U/L (9-52); AST 19 U/L (14-36); Albumin 3.1 g/dL (3.5-5.0); Alkaline Phosphatase 47 U/L (38-126); Anion Gap 5 mmol/L; Blood Urea Nitrogen 8 mg/dL (7-17); Calcium 8.8 mg/dL (8.4-10.2); Carbon Dioxide 26 mmol/L (22-30); Chloride 109 mmol/L (98-107); Glucose 84 mg/dL (74-99); Potassium 3.5 mmol/L (3.5-5.1); Sodium 140 mmol/L (137-145); Total Bilirubin 0.5 mg/dL (0.2-1.3); Total Protein 5.5 g/dL (6.3-8.2)
[2018-07-20] MEDS: ALPRAZolam 0.25 MG TAB PO PRN (09:36)
[2018-07-20] MEDS: ONDANSETRON 4 MG/2 ML VIAL IVP PRN (09:36)
[2018-07-20] MEDS: TIMOLOL 0.5% OPHTH DROPS 5 ML BTL BOTH EYES SCH (10:36)
[2018-07-20] MEDS: ENOXAPARIN 40 MG/0.4 ML SYRINGE SQ SCH (10:37)
[2018-07-20] MEDS: amLODIPine 2.5 MG TAB PO SCH (10:37)
[2018-07-20] MEDS: PANTOPRAZOLE 40 MG TABLET PO SCH (10:38)
[2018-07-20] MEDS: LOSARTAN 50 MG TAB PO SCH (10:38)
[2018-07-20] MEDS: METOPROLOL SUCCINATE (ER) 25 MG TAB.ER.24H PO SCH (10:41)
--- NOTE | 2018-07-20 10:58 | PN ---
PROGRESS NOTE DATE OF SERVICE: July 20, 2018 Patient is an 87-year-old pleasant white female admitted to hospital with acute onset of nausea, vomiting, diarrhea for the last 1 week duration. She had about 3-4 loose watery bowel movements daily but for the last 2 days the abdominal pain has resolved and so is the diarrhea. She still has persistent nausea. She was initially on a clear liquid diet. Now it was advanced to regular diet. This morning she feels a little bit nauseated but otherwise doing much better. She denies fever, chills, or night sweats. PHYSICAL EXAMINATION: She appears comfortable in no apparent distress. Vital signs stable. Blood pressure 166/75, pulse rate 66, and temperature 97.4. HEENT examination unremarkable. Conjunctivae pink. Sclerae anicteric. Oral cavity no lesions. Neck no jugular venous distention or lymph node enlargement. Chest was clear to auscultation. HEART: Regular rate and rhythm. ABDOMEN: Soft. Bowel sounds are positive. No organomegaly. Extremities: No pedal edema. Skin no rashes. NEUROLOGIC: Alert and oriented x3. No focal deficits. LABS: WBC 4.4, hemoglobin 12, platelets are normal. Basic metabolic panel is within normal limits. C difficile toxin is negative. IMPRESSION: Acute onset of diarrhea for the last 1 week duration associated with nausea, vomiting, most likely infectious etiology, possibly viral gastroenteritis, which is gradually resolving. Patient is doing much better on a regular diet. She has some nausea but otherwise the diarrhea has resolved. RECOMMENDATIONS: 1. Continue with symptomatic and supportive care with antiemetics as needed. 2. Continue to advance diet as tolerated. 3. She can be discharged home today or tomorrow with an outpatient follow up in 2-3 weeks. 4. MMODL / IJN: [id number] /
--- NOTE | 2018-07-20 11:13 | P.PN ---
Progress Note - Text Progress Note Date: 07/20/18 The patient states she feels better today. She still had some mild nausea. Her diarrhea is improved. On exam her vital signs are stable. Her abdomen soft. Resolving gastritis. Patiently most likely discharge home tomorrow.
[2018-07-20] MEDS ORDERED: ERGOCALCIFEROL 50,000 UNIT CAP PO SCH (12:00)
--- NOTE | 2018-07-20 13:35 | P.PN ---
Subjective Progress Note Date: 07/20/18 Is as an 87-year-old female patient of Dr. Seo. Patient presented to the hospital with complaints of 4 days of abdominal pain with diarrhea nausea. Patient reports that approximately 4 days ago she started to experiencing diarrhea not being able to tolerate diet. Patient thought she was improving but symptoms increased yesterday warranting her to come to the hospital for further evaluation. Patient has a past medical history of glaucoma, cholecystectomy, hypertension and anxiety. Patient does report her last colonoscopy was a few years ago she does not recall the exact date but everything was normal. Patient denies any alcohol use. Lipase on admission 703. CT of the abdomen and pelvis completed showing findings that cannot exclude acute cystitis Correlate clinically bleed. Cannot exclude acute arthritis with a few scattered air-fluid levels is slightly prominent small bowel loops. No obstruction is present. No significant change. At this time patient is still complaining of some abdominal discomfort. Patient is still having diarrhea with nausea. Patient denies any chest pain or shortness breath. Patient did have positive UA. Patient denies any burning with urination or frequency. Urine culture has been ordered On 07/19/2018 patient was seen and examined on the medical floor she is complaining of severe nausea otherwise she denies any complaints there is no fev er or chills no headache or dizziness no chest pain no shortness of breath no vomiting no abdominal pain patient had no oral intake today due to severe nausea that is no diarrhea no burning was urination no frequency or urgency and no hematuria On 07/20/2018 patient was seen and examined she is alert and oriented 3 in no apparent distress she is still complaining of nausea no vomiting she has poor oral intake otherwise she denies any symptoms there is no fever or chills no headache or dizziness no chest pain no shortness of breath no cough no vomiting no abdominal pain no diarrhea and no urinary symptoms her last bowel movement was 3 days ago when she was having diarrhea. Objective - Vital Signs Vital signs: Vital Signs Temp 98.5 F 07/20/18 07:38 Pulse 76 07/20/18 07:38 Resp 20 07/20/18 07:38 BP 142/62 07/20/18 07:38 Pulse Ox 94 L 07/20/18 07:38 Intake & Output 07/19/18 07/20/18 07/20/18 18:59 06:59 18:59 Intake Total 960 980 Balance 960 980 Intake: Intake, IV Titration 500 Amount Sodium Chloride 0.9% 1, 500 000 ml @ 50 mls/hr IV . Q20H [facility] Rx#:[id number] Oral 960 480 Other: Voiding Method Toilet Toilet # Voids 3 2 - Exam Head normocephalic and atraumatic Neck supple no JVD no goiter Lungs clear to auscultation bilaterally no wheezing or crackles Heart regular rate and rhythm S1-S2, no rub or gallop Abdomen is soft nontender nondistended positive bowel sounds no hepatosplenomeg jessika Extremities no edema no cyanosis or clubbing Neuro alert and orientated to 3 - Labs CBC & Chem 7: 07/20/18 07:14 07/20/18 07:14 Labs: Abnormal Lab Results - Last 24 Hours (Table) 07/20/18 Range/Units 07:14 Chloride 109 H (98-107) mmol/L Total Protein 5.5 L (6.3-8.2) g/dL Albumin 3.1 L (3.5-5.0) g/dL Microbiology - Last 24 Hours (Table) 07/18/18 11:00 Urine Culture - Final Urine,Voided Assessment and Plan Plan: 1. Abdominal pain with diarrhea. Lipase elevated at 703. CT of abdomen and pelvis completed showing findings I cannot exclude acute cystitis, correlate clinically. Cannot exclude acute enteritis with few scattered air-fluid levels in slightly prominent small bowel loops. No obstruction is presentchange otherwise seen from recent CT. Repeat labs have been ordered. Stool culture and C. diff stool sample ordered. GI services have been consulted 2. History of glaucoma. Home eyedrops resumed 3. History of essential hypertension. Home meds resumed 4. History of cholecystectomy 5. Increased anxiety. Patient reports she does take an excess home. Will order a Xanax at this time 6. Positive urinary analysis. UA showing positive leukocyte esterase. Patient denies any symptoms at this time urine culture ordered DVT prophylaxis Lovenox. GI prophylaxis Protonix At this time continue with current management patient is improving gradually possible discharge to home tomorrow
[2018-07-20] MEDS: LEVOFLOXACIN 500MG-D5W PMX 500 MG in DEXTROSE/WATER 1 100ML.BAG IVPB SCH (18:14)
[2018-07-20] MEDS: SODIUM CHLORIDE 0.9% 1,000 ML IV SCH (18:59)
[2018-07-20] MEDS: LATANOPROST 0.005% OPHTH DROPS 2.5 ML BTL BOTH EYES SCH (20:22)
[2018-07-20] MEDS: amLODIPine 5 MG TAB PO SCH (20:23)
[2018-07-21 07:53] LABS: Basophils % (A) 0 %; Eosinophils # (A) 0.1 k/uL (0-0.7); Eosinophils % (A) 3 %; HCT 36.8 % (34.0-46.0); HGB 12.4 gm/dL (11.4-16.0); Lymphocytes # (A) 1.6 k/uL (1.0-4.8); Lymphocytes % (A) 35 %; MCH 30.1 pg (25.0-35.0); MCHC 33.5 g/dL (31.0-37.0); MCV 89.6 fL (80.0-100.0); Mean Platelet Volume 7.4; Monocytes # (A) 0.4 k/uL (0-1.0); Monocytes % (A) 7 %; Neutrophils # (A) 2.4 k/uL (1.3-7.7); Neutrophils % (A) 52 %; Platelet Count 203 k/uL (150-450); RBC 4.11 m/uL (3.80-5.40); WBC 4.7 k/uL (3.8-10.6)
[2018-07-21 08:13] LABS: AST 20 U/L (14-36); Albumin 3.3 g/dL (3.5-5.0); Alkaline Phosphatase 46 U/L (38-126); Blood Urea Nitrogen 9 mg/dL (7-17); Calcium 8.9 mg/dL (8.4-10.2); Carbon Dioxide 25 mmol/L (22-30); Glucose 92 mg/dL (74-99); Total Bilirubin 0.7 mg/dL (0.2-1.3); Total Protein 5.9 g/dL (6.3-8.2)
[2018-07-21 08:16] VITALS: RESP 16
[2018-07-21] MEDS: ALPRAZolam 0.25 MG TAB PO PRN (08:20)
[2018-07-21] MEDS: ONDANSETRON 4 MG/2 ML VIAL IVP PRN ×2 (08:20→17:12)
[2018-07-21 08:49] LABS: ALT 37 U/L (9-52); Anion Gap 6 mmol/L; Chloride 109 mmol/L (98-107); Potassium 3.6 mmol/L (3.5-5.1); Sodium 140 mmol/L (137-145)
--- NOTE | 2018-07-21 11:38 | P.PN ---
Subjective Progress Note Date: 07/21/18 Is as an 87-year-old female patient of Dr. Seo. Patient presented to the hospital with complaints of 4 days of abdominal pain with diarrhea nausea. Patient reports that approximately 4 days ago she started to experiencing diarrhea not being able to tolerate diet. Patient thought she was improving but symptoms increased yesterday warranting her to come to the hospital for further evaluation. Patient has a past medical history of glaucoma, cholecystectomy, hypertension and anxiety. Patient does report her last colonoscopy was a few years ago she does not recall the exact date but everything was normal. Patient denies any alcohol use. Lipase on admission 703. CT of the abdomen and pelvis completed showing findings that cannot exclude acute cystitis Correlate clinically bleed. Cannot exclude acute arthritis with a few scattered air-fluid levels is slightly prominent small bowel loops. No obstruction is present. No significant change. At this time patient is still complaining of some abdominal discomfort. Patient is still having diarrhea with nausea. Patient denies any chest pain or shortness breath. Patient did have positive UA. Patient denies any burning with urination or frequency. Urine culture has been ordered On 07/19/2018 patient was seen and examined on the medical floor she is complaining of severe nausea otherwise she denies any complaints there is no fev er or chills no headache or dizziness no chest pain no shortness of breath no vomiting no abdominal pain patient had no oral intake today due to severe nausea that is no diarrhea no burning was urination no frequency or urgency and no hematuria On 07/20/2018 patient was seen and examined she is alert and oriented 3 in no apparent distress she is still complaining of nausea no vomiting she has poor oral intake otherwise she denies any symptoms there is no fever or chills no headache or dizziness no chest pain no shortness of breath no cough no vomiting no abdominal pain no diarrhea and no urinary symptoms her last bowel movement was 3 days ago when she was having diarrhea. On 07/21/2018 patient's alert and oriented 3. Patient did have stopped soft formed bowel movement this a.m. is complaining of some nausea. Patient denies chest pain or shortness of breath. Patient denies any urinary burning or frequency. Repeat amylase and lipase levels have been ordered. Objective - Vital Signs Vital signs: Vital Signs Temp 97.7 F 07/21/18 08:15 Pulse 81 07/21/18 08:15 Resp 16 07/21/18 08:15 BP 166/85 07/21/18 08:15 Pulse Ox 96 07/21/18 08:15 Intake & Output 07/20/18 07/21/18 07/21/18 18:59 06:59 18:59 Intake Total 400 980 Balance 400 980 Intake: IV 400 Sodium Chloride 0.9% 1, 400 000 ml @ 50 mls/hr IV . Q20H [facility] Rx#:[id number] Intake, IV Titration 500 Amount Sodium Chloride 0.9% 1, 500 000 ml @ 50 mls/hr IV . Q20H [facility] Rx#:[id number] Oral 480 Other: Voiding Method Toilet Toilet # Voids 2 2 - Exam Head normocephalic Neck supple Lungs clear to auscultation bilaterally no wheezing or crackles Heart regular rate and rhythm S1-S2, no rub or gallop Abdomen is soft nontender nondistended positive bowel sounds no hepatosplenomegaly Extremities no edema Neuro alert and orientated to 3 - Labs CBC & Chem 7: 07/21/18 07:24 07/21/18 07:24 Labs: Abnormal Lab Results - Last 24 Hours (Table) 07/21/18 Range/Units 07:24 Chloride 109 H (98-107) mmol/L Total Protein 5.9 L (6.3-8.2) g/dL Albumin 3.3 L (3.5-5.0) g/dL Assessment and Plan Assessment: 1. Abdominal pain with diarrhea. Lipase elevated at 703. CT of abdomen and pelvis completed showing findings I cannot exclude acute cystitis, correlate clinically. Cannot exclude acute enteritis with few scattered air-fluid levels in slightly prominent small bowel loops. No obstruction is presentchange otherwise seen from recent CT. Repeat labs have been ordered. cdiff negative. Per GI services continue symptomatic and supportive care with antiemetics. Patient follow-up in 2-3 weeks outpatient 2. History of glaucoma. Home eyedrops resumed 3. History of essential hypertension. Home meds resumed 4. History of cholecystectomy 5. Increased anxiety. Patient reports she does take an excess home. Will order a Xanax at this time 6. Positive urinary analysis. UA showing positive leukocyte esterase. Patient denies any symptoms at this time urine culture ordered. Patient currently on Levaquin DVT prophylaxis Lovenox. GI prophylaxis Protonix History discharge in the next 24-48 hours I performed an examination of the patient and discussed their management with the Nurse Practitioner. I have reviewed the Nurse Practitioner's notes and agree with the documented findings and plan of care
--- NOTE | 2018-07-21 11:59 | P.PN ---
Subjective Progress Note Date: 07/21/18 CHIEF COMPLAINT: Abdominal pain HISTORY OF PRESENT ILLNESS: Patient examined at the bedside. She denies abdominal pain. Reports mild nausea. No emesis. Reports BM this morning. No diarrhea. PHYSICAL EXAM: VITAL SIGNS: Reviewed. GENERAL: Well-developed in no acute distress. HEENT: No sclera icterus. Extraocular movements grossly intact. Moist buccal mucosa. Head is atraumatic, normocephalic. ABDOMEN: Soft. Nondistended. Nontender. NEUROLOGIC: Alert and oriented. Cranial nerves II through XII grossly intact. ASSESSMENT: 1. Abdominal pain 2. Acute gastroenteritis PLAN: 1. Diet as tolerated 2. Continue conservative measures 3. No surgical intervention. We will sign off. please reconsult if needed. Nurse practitioner note has been reviewed by physician. Signing provider agrees with the documented findings, assessment, and plan of care. Objective - Vital Signs Vital signs: Vital Signs Temp 97.7 F 07/21/18 08:15 Pulse 81 07/21/18 08:15 Resp 16 07/21/18 08:15 BP 166/85 07/21/18 08:15 Pulse Ox 96 07/21/18 08:15 Intake & Output 07/20/18 07/21/18 07/21/18 18:59 06:59 18:59 Intake Total 400 980 Balance 400 980 Intake: IV 400 Sodium Chloride 0.9% 1, 400 000 ml @ 50 mls/hr IV . Q20H [facility] Rx#:[id number] Intake, IV Titration 500 Amount Sodium Chloride 0.9% 1, 500 000 ml @ 50 mls/hr IV . Q20H [facility] Rx#:[id number] Oral 480 Other: Voiding Method Toilet Toilet # Voids 2 2 - Labs CBC & Chem 7: 07/21/18 07:24 07/21/18 07:24 Labs: Abnormal Lab Results - Last 24 Hours (Table) 07/21/18 Range/Units 07:24 Chloride 109 H (98-107) mmol/L Total Protein 5.9 L (6.3-8.2) g/dL Albumin 3.3 L (3.5-5.0) g/dL
[2018-07-21] MEDS: PANTOPRAZOLE 40 MG/10 ML VIAL IVP SCH (12:02)
[2018-07-21] MEDS: ENOXAPARIN 40 MG/0.4 ML SYRINGE SQ SCH (12:03)
[2018-07-21] MEDS: TIMOLOL 0.5% OPHTH DROPS 5 ML BTL BOTH EYES SCH (12:04)
[2018-07-21] MEDS: LOSARTAN 50 MG TAB PO SCH (12:04)
[2018-07-21] MEDS: amLODIPine 2.5 MG TAB PO SCH (12:04)
[2018-07-21] MEDS: METOPROLOL SUCCINATE (ER) 25 MG TAB.ER.24H PO SCH (12:16)
[2018-07-21] MEDS: PANTOPRAZOLE 40 MG TABLET PO SCH (12:34)
[2018-07-21 12:46] LABS: Amylase <30 U/L (30-110); Lipase 80 U/L (23-300)
[2018-07-21] MEDS: LEVOFLOXACIN 500MG-D5W PMX 500 MG in DEXTROSE/WATER 1 100ML.BAG IVPB SCH (17:12)
[2018-07-21] MEDS: SODIUM CHLORIDE 0.9% 1,000 ML IV SCH (18:54)
--- NOTE | 2018-07-21 20:09 | P.PN ---
Subjective Progress Note Date: 07/21/18 Principal diagnosis: Diarrhea, nausea and vomiting The patient is seen sitting bedside this morning, reporting that she is tolerating her diet. She did have some formed bowel movements this morning. She did have some nausea however improves at this time. Objective - Vital Signs Vital signs: Vital Signs Temp 97.9 F 07/21/18 14:36 Pulse 82 07/21/18 14:36 Resp 16 07/21/18 14:36 BP 164/85 07/21/18 14:36 Pulse Ox 98 07/21/18 14:36 Intake & Output 07/21/18 07/21/18 07/22/18 06:59 18:59 06:59 Intake Total 980 Balance 980 Intake: Intake, IV Titration 500 Amount Sodium Chloride 0.9% 1, 500 000 ml @ 50 mls/hr IV . Q20H [facility] Rx#:[id number] Oral 480 Other: Voiding Method Toilet # Voids 2 3 - Exam On physical examination, patient appears comfortable in no apparent distress. HEAD: Normocephalic, atraumatic. EYES: No scleral icterus. No conjunctival injection. MOUTH: No lesions, tongue midline. NECK: Trachea midline, no gross abnormalities. CHEST: Clear to auscultation with no wheezing or rhonchi appreciated. HEART: Regular rate and rhythm. ABDOMEN: Soft, obese. Bowel sounds are positive. No organomegaly. No guarding or rigidity. EXTREMITIES: No pedal edema. SKIN: No rashes, no jaundice. NEUROLOGIC: Alert and oriented x3. No focal deficits. - Labs CBC & Chem 7: 07/21/18 07:24 07/21/18 07:24 Labs: Abnormal Lab Results - Last 24 Hours (Table) 07/21/18 07/21/18 Range/Units 07:24 07:24 Chloride 109 H (98-107) mmol/L Total Protein 5.9 L (6.3-8.2) g/dL Albumin 3.3 L (3.5-5.0) g/dL Amylase <30 L (30-110) U/L Microbiology - Last 24 Hours (Table) 07/18/18 17:00 Stool Culture - Final Stool Assessment and Plan (1) Diarrhea Narrative/Plan: Patient presenting with loose stool and nausea and vomiting, likely representing an infectious etiology. Currently symptoms are improving. No further loose stool with the patient reporting formed bowel movements this morning. Nausea and vomiting also improving, however the patient did report some breakthrough nausea this morning Current Visit: Yes Status: Acute Code(s): R19.7 - DIARRHEA, UNSPECIFIED SNOMED Code(s): 36058556 (2) Abdominal pain Current Visit: Yes Status: Acute Code(s): R10.9 - UNSPECIFIED ABDOMINAL PAIN SNOMED Code(s): 63410395 Plan: Supportive care Continue diet Continue as needed antiemetic therapy Continue to monitor hemoglobin and hematocrit, and electrolytes and replace as needed No plans for endoscopic evaluation at this time Okay for discharge from gastroenterology perspective Thank you for allowing us to participate in the care of the patient we will continue to follow
[2018-07-21] MEDS: LATANOPROST 0.005% OPHTH DROPS 2.5 ML BTL BOTH EYES SCH (20:12)
[2018-07-21] MEDS: amLODIPine 5 MG TAB PO SCH (20:12)
[2018-07-22] MEDS: SODIUM CHLORIDE 0.9% 1,000 ML IV SCH (03:54)
[2018-07-22 07:30] VITALS: BP 158/74; PULSE 69; TEMP 97.7
[2018-07-22] MEDS: amLODIPine 2.5 MG TAB PO SCH (07:31)
[2018-07-22] MEDS: METOPROLOL SUCCINATE (ER) 25 MG TAB.ER.24H PO SCH (07:31)
[2018-07-22] MEDS: LOSARTAN 50 MG TAB PO SCH (07:31)
[2018-07-22] MEDS: PANTOPRAZOLE 40 MG/10 ML VIAL IVP SCH (07:32)
[2018-07-22] MEDS: ENOXAPARIN 40 MG/0.4 ML SYRINGE SQ SCH (07:32)
[2018-07-22] MEDS: ONDANSETRON 4 MG/2 ML VIAL IVP PRN (07:40)
[2018-07-22] MEDS: TIMOLOL 0.5% OPHTH DROPS 5 ML BTL BOTH EYES SCH (07:42)
[2018-07-22 08:03] LABS: Basophils % (A) 1 %; Eosinophils # (A) 0.2 k/uL (0-0.7); Eosinophils % (A) 3 %; HCT 37.2 % (34.0-46.0); HGB 12.5 gm/dL (11.4-16.0); Lymphocytes # (A) 1.7 k/uL (1.0-4.8); Lymphocytes % (A) 32 %; MCH 30.4 pg (25.0-35.0); MCHC 33.6 g/dL (31.0-37.0); MCV 90.4 fL (80.0-100.0); Mean Platelet Volume 7.9; Monocytes # (A) 0.5 k/uL (0-1.0); Monocytes % (A) 9 %; Neutrophils # (A) 2.8 k/uL (1.3-7.7); Neutrophils % (A) 53 %; Platelet Count 224 k/uL (150-450); RBC 4.11 m/uL (3.80-5.40); RDW 13.1 % (11.5-15.5); WBC 5.3 k/uL (3.8-10.6)
[2018-07-22 08:20] LABS: ALT 36 U/L (9-52); AST 25 U/L (14-36); Albumin 3.5 g/dL (3.5-5.0); Alkaline Phosphatase 46 U/L (38-126); Anion Gap 6 mmol/L; Blood Urea Nitrogen 12 mg/dL (7-17); Calcium 9.2 mg/dL (8.4-10.2); Carbon Dioxide 28 mmol/L (22-30); Chloride 105 mmol/L (98-107); Glucose 89 mg/dL (74-99); Potassium 3.8 mmol/L (3.5-5.1); Sodium 139 mmol/L (137-145); Total Bilirubin 0.6 mg/dL (0.2-1.3); Total Protein 6.1 g/dL (6.3-8.2)
[2018-07-22] MEDS: ALPRAZolam 0.25 MG TAB PO PRN (11:13)
--- NOTE | 2018-07-22 11:20 | P.DS ---
Providers Date of admission: 07/21/18 13:18 Expected date of discharge: 07/22/18 Attending physician: Deion Mccord Consults: 07/18/18 10:04 Consult Physician Routine Consulting Provider: Merle De La Cruz Consult Reason/Comments: previous patient, abdominal pain with diarrhea Do you want consulting provider notified?: Yes 07/18/18 14:08 Consult Physician Routine Consulting Provider: Estevan Workman Consult Reason/Comments: Ct scan Do you want consulting provider notified?: Yes Primary care physician: Sarahy Seo Hospital Course: Discharge diagnosis 1. Abdominal pain with diarrhea. Lipase elevated at 703. CT of abdomen and pelvis completed showing findings I cannot exclude acute cystitis, correlate clinically. Cannot exclude acute enteritis with few scattered air-fluid levels in slightly prominent small bowel loops. No obstruction is presentchange otherwise seen from recent CT. Repeat labs have been ordered. cdiff negative. Per GI services continue symptomatic and supportive care with antiemetics. Patient follow-up in 2-3 weeks outpatient 2. History of glaucoma. Home eyedrops resumed 3. History of essential hypertension. Home meds resumed 4. History of cholecystectomy 5. Increased anxiety. Patient reports she does take an excess home. Will order a Xanax at this time 6. Positive urinary analysis. UA showing positive leukocyte esterase. Patient denies any symptoms at this time urine culture ordered. Patient currently on Levaquin. She'll be discharged on 5 more days of Levaquin. Patient to not take when necessary Zofran until completion of antibiotic due to potential QT prolonged Hospital course Is as an 87-year-old female patient of Dr. Seo. Patient presented to the hospital with complaints of 4 days of abdominal pain with diarrhea nausea. Patient reports that approximately 4 days ago she started to experiencing diarrhea not being able to tolerate diet. Patient thought she was improving but symptoms increased yesterday warranting her to come to the hospital for further evaluation. Patient has a past medical history of glaucoma, cholecystectomy, hypertension and anxiety. Patient does report her last colonoscopy was a few years ago she does not recall the exact date but everything was normal. Patient denies any alcohol use. Lipase on admission 703. CT of the abdomen and pelvis completed showing findings that cannot exclude acute cystitis Correlate clinically bleed. Cannot exclude acute arthritis with a few scattered air-fluid levels is slightly prominent small bowel loops. No obstruction is present. No significant change. At this time patient is still complaining of some abdominal discomfort. Patient is still having diarrhea with nausea. Patient denies any chest pain or shortness breath. Patient did have positive UA. Patient denies any burning with urination or frequency. Urine culture has been ordered On 07/19/2018 patient was seen and examined on the medical floor she is complaining of severe nausea otherwise she denies any complaints there is no fever or chills no headache or dizziness no chest pain no shortness of breath no vomiting no abdominal pain patient had no oral intake today due to severe nausea that is no diarrhea no burning was urination no frequency or urgency and no hematuria On 07/20/2018 patient was seen and examined she is alert and oriented 3 in no apparent distress she is still complaining of nausea no vomiting she has poor oral intake otherwise she denies any symptoms there is no fever or chills no headache or dizziness no chest pain no shortness of breath no cough no vomiting no abdominal pain no diarrhea and no urinary symptoms her last bowel movement was 3 days ago when she was having diarrhea. On 07/21/2018 patient's alert and oriented 3. Patient did have stopped soft formed bowel movement this a.m. is complaining of some nausea. Patient denies chest pain or shortness of breath. Patient denies any urinary burning or frequency. Repeat amylase and lipase levels have been ordered. On 07/22/2018 patient's alert and oriented 3. Patient states she feels improved today. Patient has had soft formed bowel movements. No diarrhea. No abdominal pain. Patient denies chest pain or shortness of breath. Patient denies any urinary burning or frequency. Repeat amylase and lipase within normal limits. Patient to follow-up with GI services. Patient will be DC'd on Protonix and Levaquin for UTI. Patient also DC'd on 3 day supply of Xanax for anxiety. Patient to follow-up with her PCP I performed an examination of the patient and discussed their management with the Nurse Practitioner. I have reviewed the Nurse Practitioner's notes and agree with the documented findings and plan of care Patient Condition at Discharge: Stable Plan - Discharge Summary Discharge Rx Participant: No New Discharge Prescriptions: New Levofloxacin [Levaquin] 500 mg PO DAILY 5 Days #5 tab Pantoprazole Sodium [Protonix] 40 mg PO DAILY 30 Days #30 tablet. ALPRAZolam [Xanax] 0.25 mg PO Q8HR PRN 3 Days #9 tab PRN Reason: Anxiety Continue Propylene Glycol/Peg 400/Pf [Systane 0.3-0.4% Eye Drops] 1 dropper BOTH EYES DAILY PRN PRN Reason: Dry Eye(S) Ergocalciferol (Vitamin D2) [Vitamin D2] 50,000 unit PO LEWIS Losartan [Cozaar] 50 mg PO DAILY #0 tab Estrogens, Conjugated Cream [Premarin Cream] 1 applic VAGINAL HS Vitamin B Complex 1 cap PO DAILY Timolol Maleate [Timolol Maleate 0.5% Ophth Gel] 1 drop BOTH EYES DAILY Latanoprost/Pf [Latanoprost 0.005% Eye Drop] 1 drop BOTH EYES HS Diphenox-Atrop 2.5-0.025 mg [Lomotil] 1 tab PO DIRECTED amLODIPine [Norvasc] 2.5 mg PO DAILY Metoprolol Succinate [Toprol XL] 12.5 mg PO DAILY Vit C/E/Zn/Coppr/Lutein/Zeaxan [Preservision Areds 2 Softgel] 1 cap PO BID amLODIPine BESYLATE [Norvasc] 5 mg PO HS Acetaminophen [Tylenol 8 Hour] 650 mg PO Q8HR PRN PRN Reason: Pain Changed Ondansetron HCl [Zofran] 8 mg PO TID PRN #0 PRN Reason: Nausea Discharge Medication List Ergocalciferol (Vitamin D2) [Vitamin D2] 50,000 unit PO LEWIS 10/17/16 [History] Propylene Glycol/Peg 400/Pf [Systane 0.3-0.4% Eye Drops] 1 dropper BOTH EYES DAILY PRN 10/17/16 [History] Losartan [Cozaar] 50 mg PO DAILY #0 tab 11/26/16 [Rx] Acetaminophen [Tylenol 8 Hour] 650 mg PO Q8HR PRN 07/17/18 [History] Diphenox-Atrop 2.5-0.025 mg [Lomotil] 1 tab PO DIRECTED 07/17/18 [History] Estrogens, Conjugated Cream [Premarin Cream] 1 applic VAGINAL HS 07/17/18 [History] Latanoprost/Pf [Latanoprost 0.005% Eye Drop] 1 drop BOTH EYES HS 07/17/18 [History] Metoprolol Succinate [Toprol XL] 12.5 mg PO DAILY 07/17/18 [History] Timolol Maleate [Timolol Maleate 0.5% Ophth Gel] 1 drop BOTH EYES DAILY 07/17/18 [History] Vit C/E/Zn/Coppr/Lutein/Zeaxan [Preservision Areds 2 Softgel] 1 cap PO BID 07/17/18 [History] Vitamin B Complex 1 cap PO DAILY 07/17/18 [History] amLODIPine BESYLATE [Norvasc] 5 mg PO HS 07/17/18 [History] amLODIPine [Norvasc] 2.5 mg PO DAILY 07/17/18 [History] ALPRAZolam [Xanax] 0.25 mg PO Q8HR PRN 3 Days #9 tab 07/22/18 [Rx] Levofloxacin [Levaquin] 500 mg PO DAILY 5 Days #5 tab 07/22/18 [Rx] Ondansetron HCl [Zofran] 8 mg PO TID PRN #0 07/22/18 [Rx] Pantoprazole Sodium [Protonix] 40 mg PO DAILY 30 Days #30 tablet. 07/22/18 [Rx] Follow up Appointment(s)/Referral(s): Merle De La Cruz MD [STAFF PHYSICIAN] - 1 Week Sarahy Seo DO [Primary Care Provider] - 1-2 days Activity/Diet/Wound Care/Special Instructions: Diet regular Activity as tolerated Patient to not take when necessary Zofran until completion of antibiotic Discharge Disposition: HOME SELF-CARE
[2018-07-22] MEDS ORDERED: LEVOFLOXACIN 500 MG TAB PO SCH (15:00)
== END 2018-07-22 13:20 | disposition home or self-care (01) | DRG 392 ==
LOC: EC 21:10 → 4SSUR 07-18 00:45 → OBSVTOIN 07-20 13:18 → INTOOBSV 07-20 13:18 → OBSVTOIN 07-21 13:18
PROVIDERS: ADMIT Internal Medicine; ATTEND Internal Medicine
DX: K52.9 Noninfective gastroenteritis and colitis, unspecified (principal); N30.00 Acute cystitis without hematuria; E86.0 Dehydration; I10 Essential (primary) hypertension; H40.9 Unspecified glaucoma; K57.30 Diverticulosis of large intestine without perforation or abscess without bleeding; F41.9 Anxiety disorder, unspecified; Z79.899 Other long term (current) drug therapy; Z87.891 Personal history of nicotine dependence; Z96.651 Presence of right artificial knee joint; Z90.49 Acquired absence of other specified parts of digestive tract; Z96.89 Presence of other specified functional implants; Z87.19 Personal history of other diseases of the digestive system; Z88.0 Allergy status to penicillin; Z88.2 Allergy status to sulfonamides; K83.8 Other specified diseases of biliary tract
CPT/HCPCS: 36415; 74177; 80053; 81001; 82150; 83690; 83735; 85025; 87045; 87046; 87086; 87324; 96361; 96374; 99285